=== PATIENT | male | born 1940 | race Caucasian/White ===

== ENCOUNTER → 2019-04-09 | Outpatient (CLI) | payer MEDICARE, OTHER ==
[2019-04-09 16:21] LABS: African American GFR (CKD) 47.5 (60.0-200.0); Albumin 4.6 g/dL (3.80-4.90); Albumin/Globulin Ratio 2.3 (1.60-3.17); Anion Gap 9.3 mmol/L (4.00-12.00); BUN/Creat Ratio 20.63 Ratio (12.00-20.00); Calcium 9.4 mg/dL (8.7-10.3); Carbon Dioxide 22.7 mmol/L (21.6-31.8); LDL Cholesterol,Calculated 78.8 mg/dL (0.0-131.0); Non-African American GFR(CKD) 40.9 (60.0-200.0); Potassium 4.8 mmol/L (3.5-5.5); Total Bilirubin 0.4 mg/dL (0.2-1.2); Total Protein 6.6 g/dL (6.2-8.2); VLDL Calculation 11.2 mg/dL (5.00-40.00)
== END | disposition home or self-care (01) ==
LOC: LABWHC1 11:05
PROVIDERS: ATTEND Internal Medicine Interventional Cardiology
DX: E78.2 Mixed hyperlipidemia (principal)
CPT/HCPCS: 36415; 80053; 80061

== ENCOUNTER → 2019-05-27 | Outpatient (CLI) | payer MEDICARE, OTHER ==
--- NOTE | 2019-05-27 10:37 | XR ---
EXAMINATION TYPE: XR chest 2V DATE OF EXAM: 05/27/2019 COMPARISON: NONE TECHNIQUE: PA and lateral views submitted. HISTORY: Pre-MRI FINDINGS: The lungs are clear and there is no pneumothorax, pleural effusion, or focal pneumonia. Postoperati ve change with biapical pleural thickening. No overt failure. No diagnostic evidence of epicardial le ad. Surgical clips and mediastinal clips are noted. A probable coronary bypass markers noted. Sternot gloria wires noted. IMPRESSION: 1. No epicardial lead identified. There are sternotomy wires and mediastinal clips as discussed above correlate clinically.
== END | disposition home or self-care (01) ==
LOC: RADXRMAIN 09:43
PROVIDERS: ATTEND Physical Medicine & Rehabilitation
DX: Z18.9 Retained foreign body fragments, unspecified material (principal)
CPT/HCPCS: 71046

== ENCOUNTER 2019-06-11 10:46 | Inpatient (IN) | payer MEDICARE, OTHER ==
[2019-06-11 11:38] LABS: Albumin 4.5 g/dL (3.5-5.0); Calcium 9.3 mg/dL (8.4-10.2); Potassium 4.6 mmol/L (3.5-5.1); Total Bilirubin 0.6 mg/dL (0.2-1.3); Total Protein 7.5 g/dL (6.3-8.2)
--- NOTE | 2019-06-11 11:39 | XR ---
EXAMINATION TYPE: XR chest 2V DATE OF EXAM: 06/11/2019 COMPARISON: 05/27/2019 TECHNIQUE: PA and lateral views submitted. HISTORY: Cough FINDINGS: The lungs are clear and there is no pneumothorax, pleural effusion, or focal pneumonia. Postoperati ve changes. No overt failure. Biapical pleural thickening. Atherosclerotic change aorta. IMPRESSION: 1. No acute process.
[2019-06-11] MEDS ORDERED: ASPIRIN 81 MG PO STA (11:49)
[2019-06-11] MEDS ORDERED: NITROGLYCERIN OINT 1 INCH/GM PACKET TOPICAL STA (11:49)
--- NOTE | 2019-06-11 11:53 | ED ---
General Adult HPI - General Chief complaint: Chest Pain Stated complaint: Shoulder and neck pain,chest heaviness Time Seen by Provider: 06/11/19 10:55 Source: patient, RN notes reviewed Mode of arrival: ambulatory Limitations: no limitations - History of Present Illness Initial comments: Patient is a pleasant 79-year-old male presenting to the emergency department with chest and neck and posterior or discomfort. Patient was snowblowing with sudden onset of symptoms. Discomfort feels like tightness in his chest. Discomfort was mild to moderate and is now mild. Discomfort in the back of the neck and arms was moderate to severe and is now moderate. Patient may have had symptoms years ago and saw his doctor and was placed on medication for it. No associated dyspnea, nausea, or diaphoresis. No leg pain or leg swelling. Patient denies back pain. - Related Data Allergies Allergy/AdvReac Type Severity Reaction Status Date / Time morphine Allergy Rash/Hives Verified 06/11/19 13:38 Review of Systems ROS Statement: Those systems with pertinent positive or pertinent negative responses have been documented in the HPI. ROS Other: All systems not noted in ROS Statement are negative. Constitutional: Denies: fever Eyes: Denies: eye pain ENT: Denies: ear pain Respiratory: Denies: cough Cardiovascular: Reports: as per HPI, chest pain Endocrine: Denies: fatigue Gastrointestinal: Denies: abdominal pain Genitourinary: Denies: dysuria Musculoskeletal: Denies: back pain Skin: Denies: rash Neurological: Denies: weakness Past Medical History Past Medical History: Chest Pain / Angina, Diabetes Mellitus, Hyperlipidemia, Hypertension, Renal Disease History of Any Multi-Drug Resistant Organisms: None Reported Past Surgical History: Coronary Bypass/CABG Additional Past Surgical History / Comment(s): quad bypass Past Psychological History: Depression Smoking Status: Former smoker Past Alcohol Use History: None Reported Past Drug Use History: None Reported General Exam Limitations: no limitations General appearance: alert, in no apparent distress Head exam: Present: normocephalic Eye exam: Present: normal appearance, PERRL ENT exam: Present: normal oropharynx Neck exam: Present: normal inspection Respiratory exam: Present: normal lung sounds bilaterally. Absent: chest wall tenderness Cardiovascular Exam: Present: regular rate, normal rhythm Expanded Peripheral pulses: 2+: Radial (R), Radial (L), Femoral (R), Femoral (L), Posterior Tibialis (R), Posterior Tibialis (L), Dorsalis Pedis (R), Dorsalis Pedis (L) GI/Abdominal exam: Present: soft. Absent: distended, tenderness Extremities exam: Present: normal inspection. Absent: pedal edema, calf tenderness Neurological exam: Present: alert Psychiatric exam: Present: normal affect, normal mood Skin exam: Present: normal color Course Vital Signs 06/11/19 06/11/19 06/11/19 10:49 11:08 11:15 Temperature 97.9 F Pulse Rate 97 82 Pulse Rate [ 78 [employer] ] Respiratory 18 18 Rate Blood Pressure 179/82 167/80 O2 Sat by Pulse 97 96 Oximetry 06/11/19 06/11/19 12:14 13:56 Temperature Pulse Rate 75 56 L Pulse Rate [ [employer] ] Respiratory 20 18 Rate Blood Pressure 109/59 115/55 O2 Sat by Pulse 97 97 Oximetry EKG Findings - EKG Comments: EKG Findings:: Normal sinus rhythm 83. GA 172. QRS 92. QT 368. QTC 432. Normal axis. Inferior Q waves. Nonspecific ST-T. Medical Decision Making - Medical Decision Making Patient reevaluated and resting comfortably in bed. Patient updated on results and plan. Case was discussed in detail with Dr. Gomez, will admit for Dr. Lua. - Lab Data Result diagrams: 06/11/19 11:08 06/11/19 11:08 Lab Results 06/11/19 06/11/19 06/11/19 Range/Units 11:08 11:08 11:08 WBC 9.8 (3.8-10.6) k/uL RBC 4.15 L (4.30-5.90) m/uL Hgb 12.0 L (13.0-17.5) gm/dL Hct 37.5 L (39.0-53.0) % MCV 90.3 (80.0-100.0) fL MCH 29.0 (25.0-35.0) pg MCHC 32.1 (31.0-37.0) g/dL RDW 16.2 H (11.5-15.5) % Plt Count 185 (150-450) k/uL Neutrophils % 89 % Lymphocytes % 6 % Monocytes % 4 % Eosinophils % 0 % Basophils % 0 % Neutrophils # 8.7 H (1.3-7.7) k/uL Lymphocytes # 0.6 L (1.0-4.8) k/uL Monocytes # 0.4 (0-1.0) k/uL Eosinophils # 0.0 (0-0.7) k/uL Basophils # 0.0 (0-0.2) k/uL Anisocytosis Slight PT 9.4 (9.0-12.0) sec INR 0.9 (<1.2) APTT 22.5 (22.0-30.0) sec Sodium 140 (137-145) mmol/L Potassium 4.6 (3.5-5.1) mmol/L Chloride 105 (98-107) mmol/L Carbon Dioxide 21 L (22-30) mmol/L Anion Gap 14 mmol/L BUN 27 H (9-20) mg/dL Creatinine 1.21 (0.66-1.25) mg/dL Est GFR (CKD-EPI)AfAm 66 (>60 ml/min/1.73 sqM) Est GFR (CKD-EPI)NonAf 57 (>60 ml/min/1.73 sqM) Glucose 203 H (74-99) mg/dL Calcium 9.3 (8.4-10.2) mg/dL Magnesium (1.6-2.3) mg/dL Total Bilirubin 0.6 (0.2-1.3) mg/dL AST 27 (17-59) U/L ALT 20 (4-49) U/L Alkaline Phosphatase 67 (38-126) U/L Troponin I (0.000-0.034) ng/mL Total Protein 7.5 (6.3-8.2) g/dL Albumin 4.5 (3.5-5.0) g/dL 06/11/19 06/11/19 Range/Units 11:08 11:08 WBC (3.8-10.6) k/uL RBC (4.30-5.90) m/uL Hgb (13.0-17.5) gm/dL Hct (39.0-53.0) % MCV (80.0-100.0) fL MCH (25.0-35.0) pg MCHC (31.0-37.0) g/dL RDW (11.5-15.5) % Plt Count (150-450) k/uL Neutrophils % % Lymphocytes % % Monocytes % % Eosinophils % % Basophils % % Neutrophils # (1.3-7.7) k/uL Lymphocytes # (1.0-4.8) k/uL Monocytes # (0-1.0) k/uL Eosinophils # (0-0.7) k/uL Basophils # (0-0.2) k/uL Anisocytosis PT (9.0-12.0) sec INR (<1.2) APTT (22.0-30.0) sec Sodium (137-145) mmol/L Potassium (3.5-5.1) mmol/L Chloride (98-107) mmol/L Carbon Dioxide (22-30) mmol/L Anion Gap mmol/L BUN (9-20) mg/dL Creatinine (0.66-1.25) mg/dL Est GFR (CKD-EPI)AfAm (>60 ml/min/1.73 sqM) Est GFR (CKD-EPI)NonAf (>60 ml/min/1.73 sqM) Glucose (74-99) mg/dL Calcium (8.4-10.2) mg/dL Magnesium 1.8 (1.6-2.3) mg/dL Total Bilirubin (0.2-1.3) mg/dL AST (17-59) U/L ALT (4-49) U/L Alkaline Phosphatase (38-126) U/L Troponin I 0.022 (0.000-0.034) ng/mL Total Protein (6.3-8.2) g/dL Albumin (3.5-5.0) g/dL - Radiology Data Radiology results: report reviewed (Computed tomography scan of the chest negative for pulmonary embolism. Aorta unremarkable.), image reviewed (Chest x- ray shows no acute process) Disposition Clinical Impression: Chest pain Disposition: ADMITTED IP TO THIS HOSP Is patient prescribed a controlled substance at d/c from ED?: No Referrals: Junaid Castañeda MD [Primary Care Provider] - 1-2 days Decision Time: 14:01
[2019-06-11 12:13] LABS: Anisocytosis Slight; Basophils % (A) 0 %; Eosinophils % (A) 0 %; HCT 37.5 % (39.0-53.0); Lymphocytes # (A) 0.6 k/uL (1.0-4.8); Lymphocytes % (A) 6 %; MCHC 32.1 g/dL (31.0-37.0); MCV 90.3 fL (80.0-100.0); Mean Platelet Volume 8.6; Monocytes # (A) 0.4 k/uL (0-1.0); Monocytes % (A) 4 %; Neutrophils # (A) 8.7 k/uL (1.3-7.7); Neutrophils % (A) 89 %; Platelet Count 185 k/uL (150-450); RBC 4.15 m/uL (4.30-5.90); RDW 16.2 % (11.5-15.5); WBC 9.8 k/uL (3.8-10.6)
[2019-06-11 12:23] LABS: INR 0.9 (<1.2); Partial Thromboplastin Time 22.5 sec (22.0-30.0); Prothrombin Time 9.4 sec (9.0-12.0)
--- NOTE | 2019-06-11 13:38 | CT ---
CT CHEST FOR PULMONARY EMBOLISM. EXAMINATION TYPE: CT angio chest DATE OF EXAM: 06/11/2019 INDICATION: chest/neck pain CT DLP: 1313.4 mGycm, Automated exposure control for dose reduction was used. CONTRAST: Patient injected with 80 mL of Isovue 370. COMPARISON: None TECHNIQUE: CT of the chest is performed on a spiral scan at 2 mm thick sections. Study is performed with intravenous contrast timed for evaluation for pulmonary embolism. This will limit additional po rtions of the evaluation. 3-D MIP images reconstructed by the technologist are reviewed on the compu ter in the coronal and sagittal planes. FINDINGS: No persistent filling defects are evident to suggest an acute pulmonary embolism. No mediastinal or hilar adenopathy enlarged by CT criteria is evident. The ascending aorta diameter at the level of the main pulmonary artery is 4.0 cm. The main pulmonary artery diameter at the bifur cation is 3.0 cm. Moderate coronary artery calcification is present. Vascular calcification is within the aorta. Lung windows are clear. Limited CT section through the upper abdomen are unremarkable. IMPRESSIONS: 1. No acute pulmonary embolism.
[2019-06-11] MEDS ORDERED: NITROGLYCERIN SL TABS 0.4 MG TAB SUBLINGUAL PRN (14:05)
[2019-06-11 16:49] LABS: Glucose,Whole Blood 153 mg/dL (75-99)
[2019-06-11] MEDS: NITROGLYCERIN OINT 1 INCH/GM PACKET TOPICAL SCH (18:09)
[2019-06-11] MEDS ORDERED: HEPARIN SODIUM,PORCINE 5,000 UNIT/ML 1 ML VIAL IV STA (18:43)
[2019-06-11] MEDS ORDERED: HEPARIN SOD,PORK IN 0.45% NACL 25,000 UNIT in 0.45% NACL 1 250ML.BAG IV SCH (18:45)
[2019-06-11 21:19] LABS: Glucose,Whole Blood 131 mg/dL (75-99)
[2019-06-11] MEDS: INSULIN ASPART (NovoLOG) 100 UNIT/ML VIAL SQ SCH (21:56)
[2019-06-11] MEDS: GABAPENTIN 100 MG CAP PO SCH (21:57)
--- NOTE | 2019-06-11 22:17 | P.HPIM ---
History of Present Illness H&P Date: 06/11/19 Chief Complaint: Chest pain and neck pain Patient is a 79-year-old male with a known history of hypertension, diabetes type 2 insulin-dependent, coronary artery disease history of CABG and history of chronic chest pain relieved symptomatic improvement with Imdur, previous history of smoking and depression came to ER with the complaints of chest tightness and posterior neck pain and discomfort while he was snowblowing. Patient felt neck pain and shoulder pain and heaviness in the chest. Denied any nausea or vomiting. Patient did have some shortness of breath associated with that. No headache or dizziness or lightheadedness. No recent illnesses. No leg swelling. Patient says that he was diagnosed with flu about 2 months and since then has been having intermittent shortness of breath. Patient denied any cough is from production. No fever no chills. Patient is from [place] and is the first time he is staying in [place] during winter season. EKG showed normal sinus rhythm Chest x-ray showed no acute cardio pulmonary process CT angiogram of the chest showed no evidence of pulmonary embolism. Troponin 1 negative Review of Systems Constitutional: Patient denies any fever or chills . No generalized weakness or weight loss. Abdomen: Patient denied nausea vomiting and diarrhea and abdominal pain. Cardiovascular: Patient denies any chest pain or short of breath no palpitations. Chest tightness. Respiratory: patient denied any cough is from production. No shortness of breath Neurologic: Patient denied any numbness or tingling headache. Musculoskeletal: Patient denies any complaints of joint swelling or deformity. Skin: Negative Psychiatric: Negative Endocrine: No heat or cold intolerance. No recent weight gain. Genitourinary: No dysuria or hematuria. All other 14 point ROS negative except the above Past Medical History Past Medical History: Chest Pain / Angina, Diabetes Mellitus, Hyperlipidemia, Hypertension, Renal Disease History of Any Multi-Drug Resistant Organisms: None Reported Past Surgical History: Coronary Bypass/CABG Additional Past Surgical History / Comment(s): quad bypass Past Psychological History: Depression Smoking Status: Former smoker Past Alcohol Use History: None Reported Past Drug Use History: None Reported Medications and Allergies Home Medications Medication Instructions Recorded Confirmed Type Albuterol Sulfate [Proair Hfa] 2 puff INHALATION RT-Q6H PRN 06/11/19 06/11/19 History Aspirin EC [Ecotrin Low Dose] 81 mg PO DAILY 06/11/19 06/11/19 History Carboxymethylcellulose Sodium 1 drop BOTH EYES DAILY PRN 06/11/19 06/11/19 History [Refresh Tears] Cetirizine HCl [Zyrtec] 10 mg PO DAILY 06/11/19 06/11/19 History Cyanocobalamin (Vitamin B-12) 1,000 mcg PO DAILY 06/11/19 06/11/19 History [Vitamin B-12] Gabapentin [Neurontin] 100 mg PO BID 06/11/19 06/11/19 History Hydrochlorothiazide [Hydrodiuril] 25 mg PO DAILY 06/11/19 06/11/19 History Insulin Glargine,Hum.rec.anlog 60 unit SQ DAILY 06/11/19 06/11/19 History [Lantus Solostar] Isosorbide Mononitrate ER [Imdur] 60 mg PO DAILY 06/11/19 06/11/19 History Losartan Potassium 100 mg PO DAILY 06/11/19 06/11/19 History Metoprolol Succinate (ER) [Toprol 25 mg PO DAILY 06/11/19 06/11/19 History Xl] Multivitamins, Thera [Multivitamin 1 tab PO DAILY 06/11/19 06/11/19 History (formulary)] Rosuvastatin Calcium [Crestor] 20 mg PO DAILY 06/11/19 06/11/19 History glipiZIDE [Glucotrol] 2.5 mg PO AC-BID 06/11/19 06/11/19 History Allergies Allergy/AdvReac Type Severity Reaction Status Date / Time morphine Allergy Rash/Hives Verified 06/11/19 13:38 Physical Exam Vitals: Vital Signs Temp Pulse Pulse Resp BP BP Pulse Ox 06/11/19 16:00 97.6 F 58 L 18 148/70 99 06/11/19 15:34 98.3 F 57 L 18 134/69 97 06/11/19 13:56 56 L 18 115/55 97 06/11/19 12:14 75 20 109/59 97 06/11/19 11:15 82 18 167/80 96 06/11/19 11:08 78 06/11/19 10:49 97.9 F 97 18 179/82 97 Intake and Output 06/11/19 06/11/19 06/11/19 06:59 14:59 22:59 Other: Weight 98.883 kg 98.883 kg PHYSICAL EXAMINATION: Patient is lying in the bed comfortably, no acute distress, awake alert and oriented.. HEENT: Normocephalic. Neck is supple. Pupils reactive. Nostrils clear. Oral cavity is moist. Ears reveal no drainage. Neck reveals no JVD, carotid bruits, or thyromegaly. CHEST EXAMINATION: Trachea is central. Symmetrical expansion. Minimal expiratory wheeze. Lung randolph clear to auscultation and percussion. CARDIAC: Normal S1, S2 with no gallops. No murmurs ABDOMEN: Soft. Bowel sounds normal. No organomegaly. No abdominal bruits. Extremities: reveal no edema. No clubbing or cyanosis Neurologically awake, alert, oriented x3 with well-coordinated movements. No focal deficits noted Skin: No rash or skin lesions. Psychiatric: Coperative. Nonsuicidal Musculoskeletal: No joint swelling or deformity. Normal range of motion. Results CBC & Chem 7: 06/11/19 11:08 06/11/19 11:08 Labs: Abnormal Lab Results - Last 24 Hours (Table) 06/11/19 06/11/19 Range/Units 11:08 11:08 RBC 4.15 L (4.30-5.90) m/uL Hgb 12.0 L (13.0-17.5) gm/dL Hct 37.5 L (39.0-53.0) % RDW 16.2 H (11.5-15.5) % Neutrophils # 8.7 H (1.3-7.7) k/uL Lymphocytes # 0.6 L (1.0-4.8) k/uL Carbon Dioxide 21 L (22-30) mmol/L BUN 27 H (9-20) mg/dL Glucose 203 H (74-99) mg/dL Thrombosis Risk Factor Assmnt - DVT/VTE Prophylaxis DVT/VTE Prophylaxis: Pharmacologic Prophylaxis ordered - Choose All That Apply Any of the Below Risk Factors Present?: Yes Each Factor Represents 1 point: Obesity (BMI >25) Other Risk Factors: Yes Each Risk Factor Represents 3 Points: Age 75 years or older Other congenital or acquired thrombophilia - If yes, enter type in comment: No Thrombosis Risk Factor Assessment Total Risk Factor Score: 4 Thrombosis Risk Factor Assessment Level: Moderate Risk Assessment and Plan Assessment: Chest pain with known history of coronary artery disease. Atypical in nature. Rule out ACS. Recent history of flu 2 months ago Coronary artery disease with history of CABG Chronic angina symptoms. Symptomatic improvement with imdur as per patient. Hypertension Hyperglycemia with uncontrolled diabetes type 2 Depression Previous history of smoking DVT prophylaxis obesity with BMI 33.1 Plan: Patient will be continued on telemetry monitoring. Patient will be started on breathing treatments. Troponin 1 negative. Continue the home medications and insulin sliding scale. Cardiology was consulted. Further recommendations based on the clinical course. Time with Patient: Greater than 30
[2019-06-12] MEDS: NITROGLYCERIN OINT 1 INCH/GM PACKET TOPICAL SCH ×3 (02:04→13:22)
[2019-06-12] MEDS ORDERED: HEPARIN SODIUM,PORCINE 5,000 UNIT/ML 1 ML VIAL IV STA (03:03)
[2019-06-12 05:18] LABS: Cholesterol 150 mg/dL (<200); HDL Cholesterol 56 mg/dL (40-60); LDL Cholesterol,Calculated 79 mg/dL (0-99); Triglycerides 73 mg/dL (<150)
[2019-06-12 06:50] LABS: Glucose,Whole Blood 121 mg/dL (75-99)
[2019-06-12] MEDS: INSULIN ASPART (NovoLOG) 100 UNIT/ML VIAL SQ SCH ×4 (08:51→20:57)
[2019-06-12] MEDS: GABAPENTIN 100 MG CAP PO SCH ×2 (08:58→20:59)
[2019-06-12] MEDS: ISOSORBIDE MONONITRATE ER 60 MG TAB.ER.24H PO SCH (08:58)
[2019-06-12] MEDS: ATORVASTATIN 40 MG TAB PO SCH (08:58)
[2019-06-12] MEDS: LOSARTAN 50 MG TAB PO SCH (08:58)
[2019-06-12] MEDS ORDERED: ASPIRIN 325 MG TAB PO SCH (09:00)
[2019-06-12] MEDS ORDERED: ALPRAZolam 0.25 MG TAB PO PRN (10:35)
[2019-06-12] MEDS ORDERED: ALPRAZolam 0.5 MG TAB PO PRN (10:35)
[2019-06-12] MEDS ORDERED: SODIUM CHLORIDE 0.9% 1,000 ML in EMPTY BAG 1 BAG IV ONE (10:35)
--- NOTE | 2019-06-12 10:40 | P.CRDCN ---
History of Present Illness Consult date: 06/12/19 Consult reason: chest pain History of present illness: The patient is a 79-year-old male who follows with Dr. Barrera in the office who recently presented to the hospital with new onset of shoulder and chest discomfort while using his snowblower. He states some snow had fallen off of his roof, therefore he was attempting to move it from outside his garage door. He states he does have chronic back discomfort so when he started to push through the snow and developed neck pain, he continued to push. At that time he then developed a sharp squeezing sensation throughout his chest. EKG shows [address] depression in the lateral leads. Troponins 0.02, 1.6, and 1.3. Previous cath report performed at [facility] in November 2018 showed patent RUIZ to LAD patent SVG to diagonal P SVG to PDA, and DIRECTOR OF INSTITUTIONAL GIVING of LCx with collateral from PDA. He is currently resting comfortably in bed at the time of my examination. He continues to have posterior neck discomfort, however denies any more chest pain. He also denies any shortness of breath, palpitations, dizziness, or lightheadedness. PAST MEDICAL HISTORY: Coronary artery disease status post CABG 3, hypertension, dyslipidemia, diabetes mellitus and neuropathy REVIEW OF SYSTEMS: No fever or chills. No cough or expectoration. No diaphoresis. Patient denies headache, dizziness, blurred vision, double vision. Patient denies any stomach discomfort. No nausea, vomiting. No hematochezia. No hematemesis. Denies any black stools or blood in his stools. Denies dysuria or hematuria. No muscle weakness or numbness. Positive for neck discomfort PHYSICAL EXAMINATION: This is a 79-year-old obese male in no apparent distress at the time of my examination. HEENT: Head is atraumatic, normocephalic. Pupils are equal, round. Sclerae anicteric. Conjunctivae are clear. Mucous membranes of the mouth are moist. Neck is supple. There is no jugular venous distention. No carotid bruit is heard. CHEST EXAMINATION: Lungs are clear to auscultation. No chest wall tenderness is noted on palpation or with deep breathing. HEART EXAMINATION: Heart regular rate and rhythm. S1, S2 heard. No murmurs, gallops or rub. ABDOMEN: Soft, nontender. Bowel sounds are heard. No organomegaly noted. EXTREMITIES: 2+ peripheral pulses with no evidence of peripheral edema and no calf tenderness noted. NEUROLOGIC EXAMINATION: Patient is awake, alert and oriented x3. LABORATORY DATA: WBC 9.8, hemoglobin 12.0, hematocrit 37.5, platelet 185, sodium 140, potassium 4.6, BUN 27, creatinine 1.21, magnesium 1.8, AST 27, ALT 20, triglycerides 73, LDL 79, HDL 56 FINAL ASSESSMENT AND PLAN: #1 NSTEMI, history of coronary artery disease with CABG 3 #2 diabetes mellitus, uncontrolled #3 dyslipidemia, current LDL 79 #4 hypertension PLAN: We will proceed with left heart cath. Further recommendations to follow. Past Medical History Past Medical History: Chest Pain / Angina, Diabetes Mellitus, Hyperlipidemia, Hypertension, Renal Disease History of Any Multi-Drug Resistant Organisms: None Reported Past Surgical History: Coronary Bypass/CABG Additional Past Surgical History / Comment(s): quad bypass Past Psychological History: Depression Smoking Status: Former smoker Past Alcohol Use History: None Reported Past Drug Use History: None Reported Medications and Allergies Home Medications Medication Instructions Recorded Confirmed Type Albuterol Sulfate [Proair Hfa] 2 puff INHALATION RT-Q6H PRN 06/11/19 06/11/19 History Aspirin EC [Ecotrin Low Dose] 81 mg PO DAILY 06/11/19 06/11/19 History Carboxymethylcellulose Sodium 1 drop BOTH EYES DAILY PRN 06/11/19 06/11/19 History [Refresh Tears] Cetirizine HCl [Zyrtec] 10 mg PO DAILY 06/11/19 06/11/19 History Cyanocobalamin (Vitamin B-12) 1,000 mcg PO DAILY 06/11/19 06/11/19 History [Vitamin B-12] Gabapentin [Neurontin] 100 mg PO BID 06/11/19 06/11/19 History Hydrochlorothiazide [Hydrodiuril] 25 mg PO DAILY 06/11/19 06/11/19 History Insulin Glargine,Hum.rec.anlog 60 unit SQ DAILY 06/11/19 06/11/19 History [Lantus Solostar] Isosorbide Mononitrate ER [Imdur] 60 mg PO DAILY 06/11/19 06/11/19 History Losartan Potassium 100 mg PO DAILY 06/11/19 06/11/19 History Metoprolol Succinate (ER) [Toprol 25 mg PO DAILY 06/11/19 06/11/19 History Xl] Multivitamins, Thera [Multivitamin 1 tab PO DAILY 06/11/19 06/11/19 History (formulary)] Rosuvastatin Calcium [Crestor] 20 mg PO DAILY 06/11/19 06/11/19 History glipiZIDE [Glucotrol] 2.5 mg PO AC-BID 06/11/19 06/11/19 History Allergies Allergy/AdvReac Type Severity Reaction Status Date / Time morphine Allergy Rash/Hives Verified 06/11/19 13:38 Physical Exam Vitals: Vital Signs Temp Pulse Pulse Pulse Resp BP BP 06/12/19 07:10 97.5 F L 54 L 18 151/74 06/12/19 04:00 97.9 F 64 16 06/12/19 03:56 57 L 18 06/11/19 23:45 98.5 F 57 L 18 06/11/19 23:15 57 L 18 06/11/19 19:10 98.5 F 63 18 06/11/19 16:00 97.6 F 58 L 18 06/11/19 15:34 98.3 F 57 L 18 134/69 06/11/19 13:56 56 L 18 115/55 06/11/19 12:14 75 20 109/59 06/11/19 11:15 82 18 167/80 06/11/19 11:08 78 06/11/19 10:49 97.9 F 97 18 179/82 BP Pulse Ox 06/12/19 07:10 96 06/12/19 04:00 144/72 97 06/12/19 03:56 06/11/19 23:45 141/64 98 06/11/19 23:15 06/11/19 19:10 135/62 96 06/11/19 16:00 148/70 99 06/11/19 15:34 97 06/11/19 13:56 97 06/11/19 12:14 97 06/11/19 11:15 96 06/11/19 11:08 06/11/19 10:49 97 Intake and Output 06/11/19 06/12/19 06/12/19 22:59 06:59 14:59 Intake Total 240 81.476 85.422 Balance 240 81.476 85.422 Intake: Intake, IV Titration 81.476 85.422 Amount Heparin Sod,Pork in 0.45% 81.476 85.422 NaCl 25,000 unit In 0.45 % NaCl 1 250ml.bag @ 10. 11 UNITS/KG/HR 9.997 mls/ hr IV .Q24H [facility] Rx#: [id number] Oral 240 Other: Voiding Method Toilet # Voids 1 1 Weight 98.883 kg Results 06/11/19 11:08 06/11/19 11:08 Cardiac Enzymes 06/11/19 06/11/19 06/11/19 Range/Units 11:08 11:08 17:11 AST 27 (17-59) U/L Troponin I 0.022 1.600 H* (0.000-0.034) ng/mL 06/11/19 Range/Units 22:43 AST (17-59) U/L Troponin I 1.370 H* (0.000-0.034) ng/mL Coagulation 06/11/19 06/12/19 06/12/19 Range/Units 11:08 00:49 09:40 PT 9.4 (9.0-12.0) sec APTT 22.5 38.4 H 62.6 H (22.0-30.0) sec Lipids 06/11/19 Range/Units 11:08 Triglycerides 73 (<150) mg/dL Cholesterol 150 (<200) mg/dL HDL Cholesterol 56 (40-60) mg/dL CBC 06/11/19 Range/Units 11:08 WBC 9.8 (3.8-10.6) k/uL RBC 4.15 L (4.30-5.90) m/uL Hgb 12.0 L (13.0-17.5) gm/dL Hct 37.5 L (39.0-53.0) % Plt Count 185 (150-450) k/uL Comprehensive Metabolic Panel 06/11/19 Range/Units 11:08 Sodium 140 (137-145) mmol/L Potassium 4.6 (3.5-5.1) mmol/L Chloride 105 (98-107) mmol/L Carbon Dioxide 21 L (22-30) mmol/L BUN 27 H (9-20) mg/dL Creatinine 1.21 (0.66-1.25) mg/dL Glucose 203 H (74-99) mg/dL Calcium 9.3 (8.4-10.2) mg/dL AST 27 (17-59) U/L ALT 20 (4-49) U/L Alkaline Phosphatase 67 (38-126) U/L Total Protein 7.5 (6.3-8.2) g/dL Albumin 4.5 (3.5-5.0) g/dL Current Medications Generic Name Dose Route Start Last Admin Trade Name Yenny PRN Reason Stop Dose Admin Aspirin 325 mg 06/12/19 09:00 06/12/19 08:58 Aspirin PO 325 mg DAILY JAMESON Administration Atorvastatin Calcium 40 mg 06/12/19 09:00 06/12/19 08:58 Lipitor PO 40 mg DAILY JAMESON Administration Gabapentin 100 mg 06/11/19 21:30 06/12/19 08:58 Neurontin PO 100 mg BID JAMESON Administration Heparin Sodium/Sodium Chloride 250 mls @ 9.997 mls/hr 06/11/19 18:45 06/12/19 10:30 25,000 unit/ Sodium Chloride IV 12.11 units/kg/hr .Q24H JAMESON 11.975 mls/hr Titration Protocol 10.11 UNITS/KG/HR Insulin Aspart 0 unit 06/11/19 21:30 06/12/19 08:51 Novolog SQ Not Given ACHS [facility] Protocol Insulin Detemir 60 unit 06/12/19 09:00 Levemir SQ DAILY [facility] Isosorbide Mononitrate 60 mg 06/12/19 09:00 06/12/19 08:58 Imdur PO 60 mg DAILY JAMESON Administration Losartan Potassium 100 mg 06/12/19 09:00 06/12/19 08:58 Cozaar PO 100 mg DAILY JAMESON Administration Nitroglycerin 0.4 mg 06/11/19 14:05 Nitrostat SUBLINGUAL Q5M PRN Chest Pain Nitroglycerin 1 inch 06/11/19 18:00 06/12/19 05:40 Nitro-Bid Oint TOPICAL Not Given Q6HR JAMESON Sodium Chloride 10 ml 06/11/19 21:00 06/12/19 08:52 Saline Flush IV Not Given BID JAMESON Intake and Output 06/11/19 06/12/19 06/12/19 22:59 06:59 14:59 Intake Total 240 81.476 85.422 Balance 240 81.476 85.422 Intake: Intake, IV Titration 81.476 85.422 Amount Heparin Sod,Pork in 0.45% 81.476 85.422 NaCl 25,000 unit In 0.45 % NaCl 1 250ml.bag @ 10. 11 UNITS/KG/HR 9.997 mls/ hr IV .Q24H [facility] Rx#: [id number] Oral 240 Other: Voiding Method Toilet # Voids 1 1 Weight 98.883 kg 06/11/19 11:08 06/11/19 11:08
[2019-06-12] MEDS ORDERED: ATORVASTATIN 40 MG TAB PO STA (10:53)
[2019-06-12] MEDS ORDERED: IV FLUID CONTINUATION 1,000 ML IV ONE (11:18)
[2019-06-12] MEDS ORDERED: LIDOCAINE 1% INJ 10MG/ML (20 ML MDV) ONE (11:23)
[2019-06-12] MEDS ORDERED: fentaNYL (PF) 50 MCG/ML 2 ML AMP ONE (11:24)
[2019-06-12] MEDS ORDERED: fentaNYL (PF) 50 MCG/ML 2 ML AMP IV ONE (11:34)
[2019-06-12] MEDS ORDERED: LIDOCAINE 1% INJ 10MG/ML (20 ML MDV) SQ ONE (11:38)
[2019-06-12] MEDS ORDERED: IOPAMIDOL-370 125ML BTL INJ ONE (11:50)
[2019-06-12] MEDS ORDERED: IOPAMIDOL-370 100ML BTL INJ ONE (11:54)
[2019-06-12] MEDS ORDERED: RX INFO: IV CONTRAST WAS GIVEN 1 EACH MISC MISCELLANE PRN (12:13)
[2019-06-12] MEDS ORDERED: SODIUM CHLORIDE 0.9% 1,000 ML IV SCH (12:15)
[2019-06-12 12:35] LABS: Glucose,Whole Blood 102 mg/dL (75-99)
[2019-06-12] MEDS: INSULIN DETEMIR (LEVEMIR) 100 UNIT/ML SYR SQ SCH (13:04)
[2019-06-12] MEDS: CLOPIDOGREL 75 MG TAB PO SCH (13:04)
[2019-06-12] MEDS: RANOLAZINE 500 MG TAB.ER.12H PO SCH ×2 (13:04→20:59)
--- NOTE | 2019-06-12 13:06 | CC ---
CARDIAC CATHETERIZATION REPORT procedures risks and complication were discussed with the patient who is in full understanding and agreement. 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 Using Xylocaine anesthesia in the Seldinger technique, a 6-Colombian sheath was introduced in the right radial right femoral artery. Selective right and left coronary angiography performed was performed using 6-Colombian 4 bend right and left Rekha catheter. Multiple views did not include him x-rays obtained following that the 6-Colombian right Rekha was used to cannulate the saphenous vein graft to the right coronary artery. The radial graft to the diagonal branch and the RUIZ to the LAD images of the grafts were obtained. Following that, catheter and sheath were removed. Hemostasis was obtained with deployment of an Angio- Seal. There was no immediate complication. Patient is returned to his room in stable condition. FINDINGS: 1. FLUOROSCOPY: There was calcification involving the coronary arteries. 2. LEFT MAIN: This is a large-sized vessel, bifurcating into left circumflex, left anterior descending artery left main coronary artery has a 60%-70% plaque stenosis at the distal segment. 3. LEFT ANTERIOR DESCENDING ARTERY: This is a large-sized vessel, has long tubular lesion in the proximal mid segment up to 70%-80%, gives rise to a high first diagonal branch. The LAD in the mid segment has competitive flow from the RUIZ. 4. LEFT CIRCUMFLEX: This vessel is subtotally occluded in the proximal segment with no significant antegrade flow. 5. RIGHT CORONARY ARTERY: This is a large vessel, calcified throughout its course has diffuse intimal disease in the proximal in the mid and distal segment up to 60% to 70% at the distal bifurcation. There is a 99% stenosis with minimal antegrade flow beyond that. 6. SAPHENOUS VEIN GRAFT TO THE RIGHT CORONARY ARTERY: The proximal distal anastomotic sites are patent. The flow into the PLV and PDA is brisk. It appears that the distal PDA is occluded. There is retrograde filling of the circumflex to obtuse marginal branch. 7. RADIAL BYPASS TO THE DIAGONAL BRANCH: The proximal distal anastomotic sites are patent. The flow into the diagonal branch is brisk. There is no evidence of high- grade stenosis. 8. RUIZ: The distal anastomotic site is patent and the flow into the LAD is brisk. 9. LEFT VENTRICULOGRAM: Left ventriculogram is not performed. CONCLUSION: 1. Severe triple-vessel coronary artery disease with chronic occluded left circumflex, distal right coronary artery and subtotally occluded LAD. 2. Patent RUIZ to the LAD. 3. Patent radial bypass to the diagonal branch. 4. Patent saphenous vein graft to the PDA with 20%-30% plaque throughout the graft. 5. Collaterals to the left circumflex obtuse marginal branch from the right coronary artery. RECOMMENDATION: In view of finding anatomy, I recommend continue medical therapy with aggressive risk modifications being initiated. Those findings and recommendation were discussed with the patient his family and they are in full understanding and agreement. Duration of procedure is 24 minutes. MMODL / IJN: [id number] /
--- NOTE | 2019-06-12 13:12 | LTR ---
DATE OF SERVICE: 06/12/2019 RE: Abbe Burnham Dear Dr. Castañeda; I had the pleasure to perform cardiac catheterization oh Mr. Burnham at [facility] on June 08 and a full copy of the procedure noted will be forwarded to you. In brief, he was found to have severe triple-vessel coronary artery disease with patent saphenous vein graft to the right coronary artery, patent RUIZ to LAD and patent radial graft to the diagonal branch with chronically occluded left circumflex. Those finding are very similar to the findings that were noted on the report obtained from [facility] from November 2018 and based on this findings, I recommend to continue medical therapy with aggressive risk modifications being initiated. Thank you again for allowing me to participate in this patient's care. Please feel free to call for any questions. Sincerely yours, MD TRINIDAD Lira / JOAQUÍN: [id number] /
[2019-06-12 16:35] LABS: Glucose,Whole Blood 140 mg/dL (75-99)
[2019-06-12 20:08] LABS: Glucose,Whole Blood 151 mg/dL (75-99)
--- NOTE | 2019-06-12 23:44 | P.PN ---
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 Patient felt neck pain and shoulder pain and heaviness in the chest. Denied any nausea or vomiting. Patient did have some shortness of breath associated with that. No headache or dizziness or lightheadedness. No recent illnesses. No leg swelling. Patient says that he was diagnosed with flu about 2 months and since then has been having intermittent shortness of breath. Patient denied any cough is from production. No fever no chills. Patient is from [place] and is the first time he is staying in [place] during winter season. EKG showed normal sinus rhythm Chest x-ray showed no acute cardio pulmonary process CT angiogram of the chest showed no evidence of pulmonary embolism. Troponin 1 negative. Second troponin went up to 1.60 and 1.37 06/11/2019 Patient denied any complains of chest pain now. Patient underwent cardiac catheterization and no intervention was done. Patient is being continued on telemetry monitoring. No complaints of chest pain. No headache or dizziness or lightheadedness. Cardiology is following. Current medications reviewed. Objective - Vital Signs Vital signs: Vital Signs Temp 98.2 F 06/12/19 19:48 Pulse 64 06/12/19 19:48 Resp 17 06/12/19 19:48 BP 128/70 06/12/19 19:48 Pulse Ox 97 06/12/19 19:48 Intake & Output 06/12/19 06/12/19 06/13/19 06:59 18:59 06:59 Intake Total 321.476 700.422 Balance 321.476 700.422 Intake: IV 75 Intake, IV Titration 81.476 85.422 Amount Heparin Sod,Pork in 0.45% 81.476 85.422 NaCl 25,000 unit In 0.45 % NaCl 1 250ml.bag @ 10. 11 UNITS/KG/HR 9.997 mls/ hr IV .Q24H JAMESON Rx#: [id number] Oral 240 440 Other 100 Other: Voiding Method Toilet Toilet # Voids 1 1 - Exam PHYSICAL EXAMINATION: Patient is lying in the bed comfortably, no acute distress, awake alert and oriented.. HEENT: Normocephalic. Neck is supple. Pupils reactive. Nostrils clear. Oral cavity is moist. Ears reveal no drainage. Neck reveals no JVD, carotid bruits, or thyromegaly. CHEST EXAMINATION: Trachea is central. Symmetrical expansion. Lung randolph clear to auscultation and percussion. CARDIAC: Normal S1, S2 with no gallops. No murmurs ABDOMEN: Soft. Bowel sounds normal. No organomegaly. No abdominal bruits. Extremities: reveal no edema. No clubbing or cyanosis Neurologically awake, alert, oriented x3 with well-coordinated movements. No focal deficits noted Skin: No rash or skin lesions. Psychiatric: Coperative. Nonsuicidal Musculoskeletal: No joint swelling or deformity. Normal range of motion. - Labs CBC & Chem 7: 06/11/19 11:08 06/11/19 11:08 Labs: Abnormal Lab Results - Last 24 Hours (Table) 06/11/19 06/12/19 06/12/19 Range/Units 22:43 00:49 06:43 APTT 38.4 H (22.0-30.0) sec POC Glucose (mg/dL) 121 H (75-99) mg/dL Troponin I 1.370 H* (0.000-0.034) ng/mL 06/12/19 06/12/19 06/12/19 Range/Units 09:40 12:26 16:32 APTT 62.6 H (22.0-30.0) sec POC Glucose (mg/dL) 102 H 140 H (75-99) mg/dL Troponin I (0.000-0.034) ng/mL 06/12/19 Range/Units 20:07 APTT (22.0-30.0) sec POC Glucose (mg/dL) 151 H (75-99) mg/dL Troponin I (0.000-0.034) ng/mL Assessment and Plan Assessment: Chest pain Acute non-ST elevated MN with elevated troponin levels. Status post cardiac catheterization. No PCI. Recent history of flu 2 months ago Coronary artery disease with history of CABG Chronic angina symptoms. Symptomatic improvement with imdur as per patient. Hypertension Hyperglycemia with uncontrolled diabetes type 2 Depression Previous history of smoking DVT prophylaxis obesity with BMI 33.1 Plan: Patient will be continued on telemetry monitoring. Continue with Plavix and statins. Cardiology is on board. Patient will be started on breathing chel atments. Continue the home medications and insulin sliding scale. Cardiology was consulted. Further recommendations based on the clinical course. Time with Patient: Greater than 30
[2019-06-13 05:34] LABS: Calcium 8.9 mg/dL (8.4-10.2); Potassium 4.6 mmol/L (3.5-5.1)
[2019-06-13 06:33] LABS: Glucose,Whole Blood 145 mg/dL (75-99)
[2019-06-13 07:13] VITALS: RESP 18
[2019-06-13] MEDS: INSULIN DETEMIR (LEVEMIR) 100 UNIT/ML SYR SQ SCH (07:45)
[2019-06-13] MEDS: INSULIN ASPART (NovoLOG) 100 UNIT/ML VIAL SQ SCH ×2 (07:45→11:53)
[2019-06-13] MEDS: LOSARTAN 50 MG TAB PO SCH (07:46)
[2019-06-13] MEDS: ATORVASTATIN 40 MG TAB PO SCH (07:46)
[2019-06-13] MEDS: GABAPENTIN 100 MG CAP PO SCH (07:46)
[2019-06-13] MEDS: RANOLAZINE 500 MG TAB.ER.12H PO SCH (07:46)
[2019-06-13] MEDS: CLOPIDOGREL 75 MG TAB PO SCH (07:46)
[2019-06-13] MEDS: ISOSORBIDE MONONITRATE ER 60 MG TAB.ER.24H PO SCH (07:46)
--- NOTE | 2019-06-13 11:06 | P.PN ---
Subjective Patient is resting comfortably in bed. No chest discomfort dizziness lightheadedness He was admitted with a non-Q-wave myocardial infarction and has known coronary artery disease status post coronary bypass grafting Yesterday he underwent coronary angiography but did not show any progression of his epicardial coronary artery disease and medical treatment was recommended line this most likely represents small vessel disease On examination blood pressure is 170-83 mmHg pulse rate in the 60s afebrile 97.5F Breath sounds are clear no rhonchi no crackles Heart sounds are normal no murmurs or gallops or rub Breath sounds are clear 11 abdomen soft Extremities are warm Impression coronary artery disease status post coronary artery bypass grafting line admitting diagnosis non-Q-wave myocardial infarction Hypertension LDL 79 on statins Suggest Ambulate in the hallways and if he has no symptoms he may go home today Increase rosuvastatin to 40 g by mouth daily His blood pressure is mildly elevated and I would stop metoprolol and start carv edilol 3.125 mg twice daily Continue aspirin Imdur and Plavix May consider Ranexa May go home today and follow Dr. Barrera Objective - Vital Signs Vital signs: Vital Signs Temp 97.5 F L 06/13/19 07:11 Pulse 63 06/13/19 07:11 Resp 18 06/13/19 07:11 BP 132/48 06/13/19 09:46 Pulse Ox 95 06/13/19 07:11 Intake & Output 06/12/19 06/13/19 06/13/19 18:59 06:59 18:59 Intake Total 700.422 240 Balance 700.422 240 Weight 98.7 kg Intake: IV 75 Intake, IV Titration 85.422 Amount Heparin Sod,Pork in 0.45% 85.422 NaCl 25,000 unit In 0.45 % NaCl 1 250ml.bag @ 10. 11 UNITS/KG/HR 9.997 mls/ hr IV .Q24H JAMESON Rx#: [id number] Oral 440 240 Other 100 Other: Voiding Method Toilet Toilet Toilet # Voids 1 - Labs CBC & Chem 7: 06/11/19 11:08 06/13/19 04:56 Labs: Abnormal Lab Results - Last 24 Hours (Table) 06/12/19 06/12/19 06/12/19 Range/Units 12:26 16:32 20:07 BUN (9-20) mg/dL Creatinine (0.66-1.25) mg/dL Glucose (74-99) mg/dL POC Glucose (mg/dL) 102 H 140 H 151 H (75-99) mg/dL 06/13/19 06/13/19 Range/Units 04:56 06:29 BUN 28 H (9-20) mg/dL Creatinine 1.40 H (0.66-1.25) mg/dL Glucose 193 H (74-99) mg/dL POC Glucose (mg/dL) 145 H (75-99) mg/dL
[2019-06-13 11:40] VITALS: BP 112/67; PULSE 58; TEMP 98
[2019-06-13 11:48] LABS: Glucose,Whole Blood 66 mg/dL (75-99)
[2019-06-13 12:09] LABS: Glucose,Whole Blood 79 mg/dL (75-99)
--- NOTE | 2019-06-13 13:59 | ECHOF ---
Referral Reason:chest pain MEASUREMENTS -------- HEIGHT: 172.7 cm WEIGHT: 98.9 kg BP: 129/63 IVSd: 1.7 cm (0.6 - 1.1) LVIDd: 4.1 cm (3.9 - 5.3) LVPWd: 1.8 cm (0.6 - 1.1) IVSs: 2.5 cm LVIDs: 2.7 cm LVPWs: 1.8 cm RVIDd: 4.1 cm (< 3.3) LAESV Index (A-L): 16.00 ml/m Ao Diam: 3.1 cm (2.0 - 3.7) AV Cusp: 1.9 cm (1.5 - 2.6) MV E Matthew: 0.73 m/s MV DecT: 299 ms MV A Matthew: 1.00 m/s MV E/A Ratio: 0.73 RAP: 5.00 mmHg RVSP: 17.74 mmHg FINDINGS -------- Sinus rhythm. This was a technically difficult study with suboptimal apical views. Patient is post cardiac catheterization and cannot be in left lateral position. The left ventricular size is normal. There is moderate concentric left ventricular hypertrophy. O verall left ventricular systolic function is low-normal with, an EF between 50 - 55 %. The diastoli c filling pattern is normal for the age of the patient 9.78. Apical septum LV wall motion is hypoki netic. The right ventricle is moderately enlarged. Mild spontaneous echo contrast present in the left atrium. The right atrium was not well visualized. 5.0mg of Lumason was utilized for enhancement of images Interatrial and interventricular septum intact. There is mild aortic valve sclerosis. There is no evidence of aortic regurgitation. There is no e vidence of aortic stenosis. There is trace to mild mitral regurgitation. Trace tricuspid regurgitation present. Unable to estimate RVSP due to inadequate TR jet spectral do ppler profile. The pulmonic valve was not well visualized. The aortic root size is normal. IVC Not well visulized. There is no pericardial effusion. CONCLUSIONS -------- 1. Sinus rhythm. 2. This was a technically difficult study with suboptimal apical views. 3. Patient is post cardiac catheterization and cannot be in left lateral position. 4. The left ventricular size is normal. 5. There is moderate concentric left ventricular hypertrophy. 6. Overall left ventricular systolic function is low-normal with, an EF between 50 - 55 %. 7. The diastolic filling pattern is normal for the age of the patient 9.78 8. Apical septum LV wall motion is hypokinetic. 9. The right ventricle is moderately enlarged. 10. Mild spontaneous echo contrast present in the left atrium. 11. The right atrium was not well visualized. 12. 5.0mg of Lumason was utilized for enhancement of images 13. Interatrial and interventricular septum intact. 14. There is mild aortic valve sclerosis. 15. There is no evidence of aortic regurgitation. 16. There is no evidence of aortic stenosis. 17. There is trace to mild mitral regurgitation. 18. Trace tricuspid regurgitation present. 19. Unable to estimate RVSP due to inadequate TR jet spectral doppler profile. 20. The pulmonic valve was not well visualized. 21. The aortic root size is normal. 22. IVC Not well visulized. 23. There is no pericardial effusion. MOTOR VEHICLE LICENCE EXAMINER: Vannesa Henriquez RDCS
[2019-06-13] MEDS ORDERED: CARVEDILOL 3.125 MG TAB PO SCH (17:30)
--- NOTE | 2019-06-22 23:38 | P.DS ---
Providers Date of admission: 06/12/19 13:58 Expected date of discharge: 06/13/19 Attending physician: Yumiko Gomez Consults: 06/11/19 14:05 Consult Physician Urgent Consulting Provider: Ermias Spence Consult Reason/Comments: Cardiac evaluation and treatment Do you want consulting provider notified?: Yes Primary care physician: Junaid Castañeda MD Hospital Course: Discharge Diagnosis Chest pain Acute non-ST elevated RI with elevated troponin levels. Status post cardiac catheterization. No PCI. Recent history of flu 2 months ago Coronary artery disease with history of CABG Chronic angina symptoms. Symptomatic improvement with imdur as per patient. Hypertension Hyperglycemia with uncontrolled diabetes type 2 Depression Previous history of smoking DVT prophylaxis obesity with BMI 33.1 Hospital course. 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 Patient felt neck pain and shoulder pain and heaviness in the chest. Denied any nausea or vomiting. Patient did have some shortness of breath associated with that. No headache or dizziness or lightheadedness. No recent illnesses. No leg swelling. Patient says that he was diagnosed with flu about 2 months and since then has been having intermittent shortness of breath. Patient denied any cough is from production. No fever no chills. Patient is from [place] and is the first time he is staying in [place] during winter season. EKG showed normal sinus rhythm Chest x-ray showed no acute cardio pulmonary process CT angiogram of the chest showed no evidence of pulmonary embolism. Troponin 1 negative. Second troponin went up to 1.60 and 1.37 06/12/2019 Patient denied any complains of chest pain now. Patient underwent cardiac catheterization and no intervention was done. Patient is being continued on telemetry monitoring. No complaints of chest pain. No headache or dizziness or lightheadedness. Cardiology is following. 06/13/2019 Patient denied any complaints of chest pain or shortness of breath. No headache or dizziness or lightheadedness. No neck pain or back pain. Patient will be continued on dual antiplatelet therapy. Metoprolol was changed to Coreg as per cardiology. Patient was also started on Ranexa. 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 Otherwise patient is chest pain-free and wants to be discharged home. PHYSICAL EXAMINATION: Patient is lying in the bed comfortably, no acute distress, awake alert and oriented.. HEENT: Normocephalic. Neck is supple. Pupils reactive. Nostrils clear. Oral cavity is moist. Ears reveal no drainage. Neck reveals no JVD, carotid bruits, or thyromegaly. CHEST EXAMINATION: Trachea is central. Symmetrical expansion. Lung randolph clear to auscultation and percussion. CARDIAC: Normal S1, S2 with no gallops. No murmurs ABDOMEN: Soft. Bowel sounds normal. No organomegaly. No abdominal bruits. Extremities: reveal no edema. No clubbing or cyanosis Neurologically awake, alert, oriented x3 with well-coordinated movements. No focal deficits noted Skin: No rash or skin lesions. Psychiatric: Coperative. Nonsuicidal Musculoskeletal: No joint swelling or deformity. Normal range of motion. Vital Signs Temp 97.5 F L 06/13/19 07:11 Pulse 63 06/13/19 07:11 Resp 18 06/13/19 07:11 BP 132/48 06/13/19 09:46 Pulse Ox 95 06/13/19 07:11 Patient Condition at Discharge: Fair Plan - Discharge Summary Discharge Rx Participant: No New Discharge Prescriptions: New Carvedilol [Coreg] 3.125 mg PO BID #180 tablet Clopidogrel [Plavix] 75 mg PO DAILY #30 tab Ranolazine [Ranexa] 500 mg PO Q12HR #60 tab.er.12h Rosuvastatin [Crestor] 40 mg PO HS #60 tablet Continue Insulin Glargine,Hum.rec.anlog [Lantus Solostar] 60 unit SQ DAILY Losartan Potassium 100 mg PO DAILY Gabapentin [Neurontin] 100 mg PO BID glipiZIDE [Glucotrol] 2.5 mg PO AC-BID Isosorbide Mononitrate ER [Imdur] 60 mg PO DAILY Cetirizine HCl [Zyrtec] 10 mg PO DAILY Aspirin EC [Ecotrin Low Dose] 81 mg PO DAILY Albuterol Sulfate [Proair Hfa] 2 puff INHALATION RT-Q6H PRN PRN Reason: Shortness Of Breath Multivitamins, Thera [Multivitamin (formulary)] 1 tab PO DAILY Cyanocobalamin (Vitamin B-12) [Vitamin B-12] 1,000 mcg PO DAILY Carboxymethylcellulose Sodium [Refresh Tears] 1 drop BOTH EYES DAILY PRN PRN Reason: Dry Eye(S) Discontinued Metoprolol Succinate (ER) [Toprol Xl] 25 mg PO DAILY Hydrochlorothiazide [Hydrodiuril] 25 mg PO DAILY Rosuvastatin Calcium [Crestor] 20 mg PO DAILY Discharge Medication List Albuterol Sulfate [Proair Hfa] 2 puff INHALATION RT-Q6H PRN 06/11/19 [History] Aspirin EC [Ecotrin Low Dose] 81 mg PO DAILY 06/11/19 [History] Carboxymethylcellulose Sodium [Refresh Tears] 1 drop BOTH EYES DAILY PRN 06/11/19 [History] Cetirizine HCl [Zyrtec] 10 mg PO DAILY 06/11/19 [History] Cyanocobalamin (Vitamin B-12) [Vitamin B-12] 1,000 mcg PO DAILY 06/11/19 [History] Gabapentin [Neurontin] 100 mg PO BID 06/11/19 [History] Insulin Glargine,Hum.rec.anlog [Lantus Solostar] 60 unit SQ DAILY 06/11/19 [History] Isosorbide Mononitrate ER [Imdur] 60 mg PO DAILY 06/11/19 [History] Losartan Potassium 100 mg PO DAILY 06/11/19 [History] Multivitamins, Thera [Multivitamin (formulary)] 1 tab PO DAILY 06/11/19 [History] glipiZIDE [Glucotrol] 2.5 mg PO AC-BID 06/11/19 [History] Carvedilol [Coreg] 3.125 mg PO BID #180 tablet 06/13/19 [Rx] Clopidogrel [Plavix] 75 mg PO DAILY #30 tab 06/13/19 [Rx] Ranolazine [Ranexa] 500 mg PO Q12HR #60 tab.er.12h 06/13/19 [Rx] Rosuvastatin [Crestor] 40 mg PO HS #60 tablet 06/13/19 [Rx] Follow up Appointment(s)/Referral(s): Ermias Spence MD [STAFF PHYSICIAN] - 1 Week Junaid Castañeda MD [Primary Care Provider] - 1-2 days Patient Instructions/Handouts: Chest Pain (DC) Discharge Disposition: HOME SELF-CARE
== END 2019-06-13 15:05 | disposition home or self-care (01) | DRG 282 ==
LOC: EC 10:46 → 1SOBS 14:05 → OBSVTOIN 06-12 13:58
PROVIDERS: ADMIT Internal Medicine; ATTEND Internal Medicine
PROC: 4A023N7 Measurement of Cardiac Sampling and Pressure, Left Heart, Percutaneous Approach (ICD-10-PCS; principal; 2019-06-12 11:04)
PROC: B2131ZZ Fluoroscopy of Multiple Coronary Artery Bypass Grafts using Low Osmolar Contrast (ICD-10-PCS; principal; 2019-06-12 11:04)
PROC: B2111ZZ Fluoroscopy of Multiple Coronary Arteries using Low Osmolar Contrast (ICD-10-PCS; principal; 2019-06-12 11:04)
PROC: B2181ZZ Fluoroscopy of Left Internal Mammary Bypass Graft using Low Osmolar Contrast (ICD-10-PCS; principal; 2019-06-12 11:04)
DX: I21.4 Non-ST elevation (NSTEMI) myocardial infarction (principal); E11.40 Type 2 diabetes mellitus with diabetic neuropathy, unspecified; E11.65 Type 2 diabetes mellitus with hyperglycemia; E66.9 Obesity, unspecified; Z68.33 Body mass index [BMI] 33.0-33.9, adult; E78.5 Hyperlipidemia, unspecified; F32.9 Major depressive disorder, single episode, unspecified; I10 Essential (primary) hypertension; I25.10 Atherosclerotic heart disease of native coronary artery without angina pectoris; I25.2 Old myocardial infarction; Z79.4 Long term (current) use of insulin; Z79.82 Long term (current) use of aspirin; Z79.899 Other long term (current) drug therapy; Z87.891 Personal history of nicotine dependence
CPT/HCPCS: 36415; 71046; 71275; 80048; 80053; 80061; 83735; 84484; 85025; 85610; 85730; 93005; 93306; 93455; 99285

== ENCOUNTER 2019-12-12 12:59 | Emergency (ER) | payer MEDICARE, OTHER ==
[2019-12-12 13:24] VITALS: TEMP 98.1
[2019-12-12] MEDS ORDERED: ONDANSETRON 4 MG/2 ML VIAL IVP STA (14:02)
[2019-12-12] MEDS ORDERED: SODIUM CHLORIDE 0.9% 500 ML 500 ML IV STA (14:02)
[2019-12-12] MEDS ORDERED: KETOROLAC 30 MG/ML 1 ML VIAL IVP STA (14:02)
--- NOTE | 2019-12-12 14:38 | ED ---
Abdominal Pain HPI - General Chief Complaint: Abdominal Pain Stated Complaint: abd pain Time Seen by Provider: 12/12/19 13:30 Source: patient Mode of arrival: wheelchair Limitations: no limitations - History of Present Illness Initial Comments: Patient is a 79-year-old male, with history of diabetes, hypertension, extensive heart disease, presenting to the emergency Department with complaints of right lower quadrant abdominal pain that started this morning. The patient's states that it did wake him up from sleeping this morning. 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 Patient describes the pain is mostly on the right side of his abdomen with some radiation into his right groin. Patient denies history of kidney stones. He denies any abdominal surgeries. He denies any recent fever or chills. He denies any chest pain or shortness of breath. He states he had 2 bowel moveme nts this morning. No difficulty with urination. Patient states yesterday he felt his normal self, was eating and drinking as normal. He has no further complaints at this time. Upon arrival to the ER, his vital signs are stable. - Related Data Home Medications Medication Instructions Recorded Confirmed Albuterol Sulfate [Proair Hfa] 2 puff INHALATION RT-Q6H PRN 06/11/19 06/11/19 Aspirin EC [Ecotrin Low Dose] 81 mg PO DAILY 06/11/19 06/11/19 Carboxymethylcellulose Sodium 1 drop BOTH EYES DAILY PRN 06/11/19 06/11/19 [Refresh Tears] Cetirizine HCl [Zyrtec] 10 mg PO DAILY 06/11/19 06/11/19 Cyanocobalamin (Vitamin B-12) 1,000 mcg PO DAILY 06/11/19 06/11/19 [Vitamin B-12] Gabapentin [Neurontin] 100 mg PO BID 06/11/19 06/11/19 Insulin Glargine,Hum.rec.anlog 60 unit SQ DAILY 06/11/19 06/11/19 [Lantus Solostar] Isosorbide Mononitrate ER [Imdur] 60 mg PO DAILY 06/11/19 06/11/19 Losartan Potassium 100 mg PO DAILY 06/11/19 06/11/19 Multivitamins, Thera [Multivitamin 1 tab PO DAILY 06/11/19 06/11/19 (formulary)] glipiZIDE [Glucotrol] 2.5 mg PO AC-BID 06/11/19 06/11/19 Previous Rx's Medication Instructions Recorded Clopidogrel [Plavix] 75 mg PO DAILY #30 tab 06/13/19 Ranolazine [Ranexa] 500 mg PO Q12HR #60 tab.er.12h 06/13/19 Rosuvastatin [Crestor] 40 mg PO HS #60 tablet 06/13/19 carvediloL [Coreg] 3.125 mg PO BID #180 tablet 06/13/19 Ondansetron Odt [Zofran Odt] 4 mg PO Q8HR PRN #10 tab 12/12/19 Tamsulosin [Flomax] 0.4 mg PO DAILY #7 cap 12/12/19 traMADol HCl [Ultram] 50 mg PO Q6H PRN #10 tab 12/12/19 Allergies Allergy/AdvReac Type Severity Reaction Status Date / Time morphine Allergy Rash/Hives Verified 12/12/19 13:23 Review of Systems ROS Statement: Those systems with pertinent positive or pertinent negative responses have been documented in the HPI. ROS Other: All systems not noted in ROS Statement are negative. Past Medical History Past Medical History: Chest Pain / Angina, Diabetes Mellitus, Hyperlipidemia, Hypertension, Renal Disease History of Any Multi-Drug Resistant Organisms: None Reported Past Surgical History: Coronary Bypass/CABG Additional Past Surgical History / Comment(s): quad bypass Past Psychological History: Depression Past Alcohol Use History: None Reported Past Drug Use History: None Reported General Exam - General Exam Comments Initial Comments: GENERAL: Patient is well-developed and well-nourished. Patient is nontoxic and in no acute distress, but does appear uncomfortable. HEAD: Atraumatic, normocephalic. EYES: Pupils equal round and reactive to light, extraocular movements intact, sclera anicteric, conjunctiva are normal. Eyelids were unremarkable. ENT: TMs normal, nares patent, oropharynx clear without exudates. Moist mucous membranes. NECK: Normal range of motion, supple without lymphadenopathy or JVD. LUNGS: Unlabored respirations. Breath sounds clear to auscultation bilaterally and equal. No wheezes rales or rhonchi. HEART: Regular rate and rhythm without murmurs, rubs or gallops. ABDOMEN: Tenderness with palpation of right lower quadrant, right side of the abdomen. Soft, normoactive bowel sounds. No guarding, no rebound. No masses appreciated. : Deferred MUSCULOSKELETAL: Normal extremities with adequate strength and normal range of motion, no pitting or edema. No clubbing or cyanosis. NEUROLOGICAL: Patient is alert and oriented x 3. Normal speech, normal gait. PSYCH: Normal mood, normal affect. SKIN: Warm, Dry, normal turgor, no rashes or lesions noted. Limitations: no limitations Course Vital Signs 12/12/19 12/12/19 13:19 15:02 Temperature 98.1 F Pulse Rate 48 L 50 L Respiratory 20 17 Rate Blood Pressure 154/54 103/44 O2 Sat by Pulse 97 98 Oximetry Medical Decision Making - Medical Decision Making Patient is a 79-year-old male history of diabetes, hypertension, extensive heart disease, presenting with right lower quadrant pain that woke up this morning. No history of kidney stones, no abdominal surgeries. His vitals are stable upon arrival. Lab work reveals a slight increase in creatinine at 2.07, lactic acid is normal, lipase is normal. No white count. Urine reveals trace amount blood, Rbc's, no evidence of infection. CT of the abdomen shows an obstructing distal ureter right calculus with right-sided hydronephrosis. Patient was given fluids, pain control. He states his pain is minimal at this time. I did review these findings with the patient. He is stable for discharge. Recommended increased fluid intake, he will be sent home with Flomax, pain control as well as Zofran. He is in agreement with this plan of care. I will give patient referral to urology. Return parameters were discussed with the patient and his and they both verbalized understanding. Case discussed with Dr. Rojo. - Lab Data Result diagrams: 12/12/19 14:21 12/12/19 14:21 Lab Results 12/12/19 12/12/19 12/12/19 Range/Units 14:21 14:21 14:21 WBC 9.4 (3.8-10.6) k/uL RBC 3.58 L (4.30-5.90) m/uL Hgb 10.4 L (13.0-17.5) gm/dL Hct 31.9 L (39.0-53.0) % MCV 89.2 (80.0-100.0) fL MCH 29.0 (25.0-35.0) pg MCHC 32.5 (31.0-37.0) g/dL RDW 16.1 H (11.5-15.5) % Plt Count 203 (150-450) k/uL Neutrophils % 85 % Lymphocytes % 6 % Monocytes % 5 % Eosinophils % 2 % Basophils % 0 % Neutrophils # 8.0 H (1.3-7.7) k/uL Lymphocytes # 0.6 L (1.0-4.8) k/uL Monocytes # 0.5 (0-1.0) k/uL Eosinophils # 0.1 (0-0.7) k/uL Basophils # 0.0 (0-0.2) k/uL Anisocytosis Slight PT 9.9 (9.0-12.0) sec INR 0.9 (<1.2) APTT 21.1 L (22.0-30.0) sec Sodium (137-145) mmol/L Potassium (3.5-5.1) mmol/L Chloride (98-107) mmol/L Carbon Dioxide (22-30) mmol/L Anion Gap mmol/L BUN (9-20) mg/dL Creatinine (0.66-1.25) mg/dL Est GFR (CKD-EPI)AfAm (>60 ml/min/1.73 sqM) Est GFR (CKD-EPI)NonAf (>60 ml/min/1.73 sqM) Glucose (74-99) mg/dL Plasma Lactic Acid Manpreet (0.7-2.0) mmol/L Calcium (8.4-10.2) mg/dL Total Bilirubin (0.2-1.3) mg/dL AST (17-59) U/L ALT (4-49) U/L Alkaline Phosphatase (38-126) U/L Total Protein (6.3-8.2) g/dL Albumin (3.5-5.0) g/dL Amylase (30-110) U/L Lipase (23-300) U/L Urine Color Yellow Urine Appearance Clear (Clear) Urine pH 6.0 (5.0-8.0) Ur Specific Thornton 1.015 (1.001-1.035) Urine Protein Trace H (Negative) Urine Glucose (UA) 1+ H (Negative) Urine Ketones Negative (Negative) Urine Blood Trace H (Negative) Urine Nitrite Negative (Negative) Urine Bilirubin Negative (Negative) Urine Urobilinogen <2.0 (<2.0) mg/dL Ur Leukocyte Esterase Trace H (Negative) Urine RBC 11 H (0-5) /hpf Urine WBC 2 (0-5) /hpf Urine Mucus Rare H (None) /hpf 12/12/19 12/12/19 Range/Units 14:21 14:21 WBC (3.8-10.6) k/uL RBC (4.30-5.90) m/uL Hgb (13.0-17.5) gm/dL Hct (39.0-53.0) % MCV (80.0-100.0) fL MCH (25.0-35.0) pg MCHC (31.0-37.0) g/dL RDW (11.5-15.5) % Plt Count (150-450) k/uL Neutrophils % % Lymphocytes % % Monocytes % % Eosinophils % % Basophils % % Neutrophils # (1.3-7.7) k/uL Lymphocytes # (1.0-4.8) k/uL Monocytes # (0-1.0) k/uL Eosinophils # (0-0.7) k/uL Basophils # (0-0.2) k/uL Anisocytosis PT (9.0-12.0) sec INR (<1.2) APTT (22.0-30.0) sec Sodium 137 (137-145) mmol/L Potassium 5.3 H (3.5-5.1) mmol/L Chloride 105 (98-107) mmol/L Carbon Dioxide 19 L (22-30) mmol/L Anion Gap 13 mmol/L BUN 34 H (9-20) mg/dL Creatinine 2.07 H (0.66-1.25) mg/dL Est GFR (CKD-EPI)AfAm 34 (>60 ml/min/1.73 sqM) Est GFR (CKD-EPI)NonAf 30 (>60 ml/min/1.73 sqM) Glucose 170 H (74-99) mg/dL Plasma Lactic Acid Manpreet 1.2 (0.7-2.0) mmol/L Calcium 9.6 (8.4-10.2) mg/dL Total Bilirubin 0.6 (0.2-1.3) mg/dL AST 23 (17-59) U/L ALT 18 (4-49) U/L Alkaline Phosphatase 68 (38-126) U/L Total Protein 7.6 (6.3-8.2) g/dL Albumin 5.0 (3.5-5.0) g/dL Amylase 52 (30-110) U/L Lipase 143 (23-300) U/L Urine Color Urine Appearance (Clear) Urine pH (5.0-8.0) Ur Specific Thornton (1.001-1.035) Urine Protein (Negative) Urine Glucose (UA) (Negative) Urine Ketones (Negative) Urine Blood (Negative) Urine Nitrite (Negative) Urine Bilirubin (Negative) Urine Urobilinogen (<2.0) mg/dL Ur Leukocyte Esterase (Negative) Urine RBC (0-5) /hpf Urine WBC (0-5) /hpf Urine Mucus (None) /hpf Disposition Clinical Impression: Right ureteral stone, Right sided abdominal pain, Nausea & vomiting Disposition: HOME SELF-CARE Condition: Stable Instructions (If sedation given, give patient instructions): Kidney Stones (ED) Additional Instructions: Please return to the Emergency Department if symptoms worsen or any other concerns. Take medications as prescribed. Follow up with urology as discussed. Prescriptions: Tamsulosin [Flomax] 0.4 mg PO DAILY #7 cap traMADol HCl [Ultram] 50 mg PO Q6H PRN #10 tab PRN Reason: Pain Ondansetron Odt [Zofran Odt] 4 mg PO Q8HR PRN #10 tab PRN Reason: Nausea Is patient prescribed a controlled substance at d/c from ED?: Yes When asked, does pt state using other controlled substances?: No If prescribed controlled substance>3 days was MAPS reviewed?: Prescribed <3 Days If opioid is for acute pain is fill amount 7 days or less?: Yes If Rx opioid, was Start Talking consent form obtained?: Yes Referrals: Junaid Castañeda MD [Primary Care Provider] - 1-2 days Cruz Acosta MD [STAFF PHYSICIAN] - 1-2 days
[2019-12-12 14:43] LABS: Anisocytosis Slight; Basophils % (A) 0 %; Eosinophils # (A) 0.1 k/uL (0-0.7); Eosinophils % (A) 2 %; HCT 31.9 % (39.0-53.0); HGB 10.4 gm/dL (13.0-17.5); Lymphocytes # (A) 0.6 k/uL (1.0-4.8); Lymphocytes % (A) 6 %; MCHC 32.5 g/dL (31.0-37.0); MCV 89.2 fL (80.0-100.0); Mean Platelet Volume 7.8; Monocytes # (A) 0.5 k/uL (0-1.0); Monocytes % (A) 5 %; Neutrophils % (A) 85 %; Platelet Count 203 k/uL (150-450); RBC 3.58 m/uL (4.30-5.90); RDW 16.1 % (11.5-15.5); WBC 9.4 k/uL (3.8-10.6)
[2019-12-12 14:47] LABS: Appearance,Urine Clear (Clear); Bilirubin,Urine Negative (Negative); Blood,Urine Trace (Negative); Color,Urine Yellow; Glucose,Urine (UA) 1+ (Negative); Ketones,Urine Negative (Negative); Leukocyte Esterase,Urine Trace (Negative); Mucus,Urine Rare /hpf; Nitrite,Urine Negative (Negative); Protein,Urine Trace (Negative); RBC,Urine 11 /hpf (0-5); Specific Gravity,Urine 1.015 (1.001-1.035); Urobilinogen,Urine <2.0 mg/dL (<2.0); WBC,Urine 2 /hpf (0-5)
[2019-12-12 14:55] LABS: Calcium 9.6 mg/dL (8.4-10.2); Potassium 5.3 mmol/L (3.5-5.1); Total Bilirubin 0.6 mg/dL (0.2-1.3); Total Protein 7.6 g/dL (6.3-8.2)
[2019-12-12 15:00] LABS: INR 0.9 (<1.2); Prothrombin Time 9.9 sec (9.0-12.0)
[2019-12-12 15:01] LABS: Partial Thromboplastin Time 21.1 sec (22.0-30.0)
--- NOTE | 2019-12-12 15:42 | CT ---
EXAMINATION TYPE: CT abdomen pelvis wo con DATE OF EXAM: 12/12/2019 COMPARISON: None HISTORY: Right flank pain. CT DLP: 1005.3 mGycm Automated exposure control for dose reduction was used. Multiple axial sections were obtained from the diaphragm to the floor the pelvis without contrast. Lung bases are clear of consolidation. There is mild interstitial fibrotic change at the posterior elly ng bases. There is no pleural effusion. Heart size is fairly normal. There is no pericardial effusion . Abdominal aorta is atheromatous. Liver spleen stomach pancreas gallbladder appear normal. Bile duct s are not dilated. Stomach appears normal. There is no adrenal mass. There is right-sided hydronephrosis and hydroureter. There is 4 mm obstruct ing calculus at the right ureterovesical junction. There is 3 mm calculus lower pole right kidney. Th ere is right-sided perinephric edema. There is no retroperitoneal adenopathy. Bladder is almost empty . There is no inguinal hernia. There is no free fluid in the pelvis. Appendix is posterior and medial and appears normal. There is no mesenteric edema. There is no ascites or free air. There is no bowel obstruction. There i s no inguinal hernia. Lumbar vertebra have fairly normal alignment. There is disc space narrowing throughout the lumbar spi ne with spurring and mild vacuum disc. There is no compression fracture. The bony pelvis appears inta ct. IMPRESSION: Obstructing calculus distal right ureter with right-sided hydronephrosis and hydroureter. Small calcu guillermo right kidney.
[2019-12-12 16:14] VITALS: BP 141/89; PULSE 89; RESP 16
== END 2019-12-12 16:14 | disposition home or self-care (01) ==
LOC: EC 12:59
DX: N13.2 Hydronephrosis with renal and ureteral calculous obstruction (principal); E11.9 Type 2 diabetes mellitus without complications; I11.9 Hypertensive heart disease without heart failure; I20.9 Angina pectoris, unspecified; Z95.1 Presence of aortocoronary bypass graft; Z79.4 Long term (current) use of insulin; Z79.82 Long term (current) use of aspirin; Z79.899 Other long term (current) drug therapy; Z88.5 Allergy status to narcotic agent
CPT/HCPCS: 36415; 80053; 82150; 83605; 83690; 85025; 85610; 85730; 81001; 74176; 99284; 96374; 96375; 96361; J2405; J1885

== ENCOUNTER → 2020-03-10 | Outpatient (CLI) | payer MEDICARE, OTHER ==
[2020-03-10 16:14] LABS: African American GFR (CKD) 38.3 (60.0-200.0); Albumin 4.4 g/dL (3.80-4.90); Albumin/Globulin Ratio 2.32 (1.60-3.17); Anion Gap 8.6 mmol/L (4.00-12.00); BUN/Creat Ratio 13.68 Ratio (12.00-20.00); Calcium 9.1 mg/dL (8.7-10.3); Carbon Dioxide 24.4 mmol/L (21.6-31.8); Chol/HDL Ratio 3.03; Globulin 1.9 g/dL (1.6-3.3); Potassium 4.8 mmol/L (3.5-5.5); Total Bilirubin 0.3 mg/dL (0.3-1.2); Total Protein 6.3 g/dL (6.2-8.2)
[2020-03-10 17:20] LABS: Hemoglobin A1C 6.2 % (4.0-6.0)
== END | disposition home or self-care (01) ==
LOC: LABWHC1 09:52
PROVIDERS: ATTEND Internal Medicine Endocrinology, Diabetes & Metabolism
DX: E11.65 Type 2 diabetes mellitus with hyperglycemia (principal)
CPT/HCPCS: 36415; 80053; 80061; 82043; 82570; 83036; 84443

== ENCOUNTER → 2020-06-14 | Outpatient (CLI) | payer MEDICARE, OTHER ==
[2020-06-14 20:26] LABS: Chol/HDL Ratio 3.56; LDL Cholesterol,Calculated 67.8 mg/dL (0.0-131.0); VLDL Calculation 14.2 mg/dL (5.00-40.00)
== END | disposition home or self-care (01) ==
LOC: LABWHC1 10:51
PROVIDERS: ATTEND Nurse Practitioner Adult Health
DX: E78.2 Mixed hyperlipidemia (principal)
CPT/HCPCS: 36415; 80061; 84450; 84460

== ENCOUNTER → 2021-05-01 | Outpatient (CLI) | payer MEDICARE, OTHER ==
[2021-05-01 22:19] LABS: ALT 16 U/L (10-49); AST 15 U/L (14-35); African American GFR (CKD) 46.5 (60.0-200.0); Albumin 4.4 g/dL (3.8-4.9); Albumin/Globulin Ratio 1.91 (1.60-3.17); Alkaline Phosphatase 94 U/L (41-126); Calcium 9.3 mg/dL (8.7-10.3); Carbon Dioxide 21.5 mmol/L (20.0-27.5); Chloride 102 mmol/L (96-109); Chol/HDL Ratio 4.04 Ratio; Globulin 2.3 g/dL (1.6-3.3); Glucose 202 mg/dL (70-110); LDL Cholesterol,Calculated 107.8 mg/dL (0.0-131.0); Non-African American GFR(CKD) 40.1 (60.0-200.0); Potassium 4.6 mmol/L (3.5-5.5); Sodium 139 mmol/L (135-145); Total Protein 6.7 g/dL (6.2-8.2); VLDL Calculation 15.62 mg/dL (5.00-40.00)
== END | disposition home or self-care (01) ==
LOC: LABWHC1 11:41
PROVIDERS: ATTEND Internal Medicine Interventional Cardiology
DX: E78.2 Mixed hyperlipidemia (principal)
CPT/HCPCS: 36415; 80053; 80061

== ENCOUNTER 2021-08-25 10:52 | Observation (INO) | payer MEDICARE, OTHER ==
--- NOTE | 2021-08-25 11:35 | XR ---
EXAMINATION TYPE: XR chest 1V portable DATE OF EXAM: 08/25/2021 11:26 AM COMPARISON:Chest radiographs from 06/11/2019 TECHNIQUE: XR chest 1V portable Frontal view of the chest. CLINICAL INDICATION:Male, 81 years old with history of chest pain; FINDINGS: Lungs/Pleura: There is no evidence of pleural effusion, focal consolidation, or pneumothorax. Pulmonary vascularity: Unremarkable. Heart/mediastinum: Cardiomediastinal silhouette is unremarkable. Musculoskeletal: No acute osseous pathology. Midline sternotomy wires are noted and stable. IMPRESSION: No acute cardiopulmonary disease/process.
[2021-08-25 11:55] LABS: Basophils # (A) 0.1 k/uL (0-0.2); Basophils % (A) 1 %; Eosinophils # (A) 0.3 k/uL (0-0.7); Eosinophils % (A) 3 %; HCT 33.2 % (39.0-53.0); HGB 10.4 gm/dL (13.0-17.5); Lymphocytes # (A) 1.3 k/uL (1.0-4.8); Lymphocytes % (A) 15 %; MCH 29.4 pg (25.0-35.0); MCHC 31.4 g/dL (31.0-37.0); MCV 93.5 fL (80.0-100.0); Monocytes # (A) 0.7 k/uL (0-1.0); Monocytes % (A) 9 %; Neutrophils % (A) 70 %; Platelet Count 224 k/uL (150-450); RBC 3.55 m/uL (4.30-5.90); RDW 15.3 % (11.5-15.5); WBC 8.6 k/uL (3.8-10.6)
[2021-08-25 11:59] LABS: INR 0.9 (<1.2)
[2021-08-25 12:00] LABS: Partial Thromboplastin Time 22.5 sec (22.0-30.0); Prothrombin Time 10.3 sec (9.0-12.0)
[2021-08-25 12:01] LABS: Albumin 4.2 g/dL (3.5-5.0); Potassium 4.2 mmol/L (3.5-5.1); Total Bilirubin 0.4 mg/dL (0.2-1.3); Total Protein 6.9 g/dL (6.3-8.2)
[2021-08-25] MEDS ORDERED: SODIUM CHLORIDE 0.9% 500 ML 500 ML IV STA (12:56)
[2021-08-25] MEDS ORDERED: ACETAMINOPHEN TAB 325 MG TAB PO PRN (12:56)
[2021-08-25] MEDS ORDERED: NALOXONE 0.4 MG/ML 1 ML VIAL IV PRN (12:56)
--- NOTE | 2021-08-25 13:48 | ED ---
General Adult HPI - General Chief complaint: Chest Pain Stated complaint: Chest pain Time Seen by Provider: 08/25/21 11:02 Source: patient, EMS, RN notes reviewed, old records reviewed Mode of arrival: EMS Limitations: no limitations - History of Present Illness Initial comments: Patient is a 81-year-old male with past medical history remarkable for cardiac disease including quadruple bypass, hypertension, hyperlipidemia, diabetes who is transferred from an outside hospital for cardiology evaluation. At this outside hospital in [place], [place], there was no sales hunter on site. Patient does receive care through cardiology here. Patient sees Dr. Barrera. Therefore patient was transferred here. Patient originally presented to the outside hospital yesterday morning. He was having 2 day history of intermittent chest pain with associated shortness of breath. It is all since passed. Cardiac workup at the outside hospital showed to determine troponins as well as a normal EKG. He received aspirin there. He currently has no acute complaints. No fevers, chills, sick contacts. Denies any current chest pain. States the chest pain over the last 2 days occurred because he was climbing stairs helping family members move. Presents for cardiac evaluation. I was able to speak with the charge nurse at the outside facility who conveyed the workup and results to me. - Related Data Home Medications Medication Instructions Recorded Confirmed Aspirin EC [Ecotrin Low Dose] 81 mg PO DAILY 06/11/19 08/25/21 Cyanocobalamin (Vitamin B-12) 2,000 mcg PO DAILY 06/11/19 08/25/21 [Vitamin B-12] Isosorbide Mononitrate ER [Imdur] 60 mg PO DAILY 06/11/19 08/25/21 Multivitamins, Thera [Multivitamin 1 tab PO DAILY 06/11/19 08/25/21 (formulary)] glipiZIDE [Glucotrol] 5 mg PO DAILY 06/11/19 08/25/21 Escitalopram [Lexapro] 20 mg PO DAILY 08/25/21 08/25/21 Ferrous Sulfate [Iron (65 MG 325 mg PO BID 08/25/21 08/25/21 Elemental)] Losartan/Hydrochlorothiazide 1 tab PO DAILY 08/25/21 08/25/21 [Losartan-Hctz 100-12.5 mg Tab] Meloxicam 15 mg PO DAILY 08/25/21 08/25/21 Metoprolol Tartrate [Lopressor] 25 mg PO BID 08/25/21 08/25/21 Montelukast [Singulair] 10 mg PO HS 08/25/21 08/25/21 Ranolazine [Ranexa] 500 mg PO BID 08/25/21 08/25/21 Rosuvastatin Calcium [Crestor] 40 mg PO HS 08/25/21 08/25/21 amLODIPine [Norvasc] 5 mg PO DAILY 08/25/21 08/25/21 cycloSPORINE 0.05% OPHTH SOLN 1 drop BOTH EYES BID 08/25/21 08/25/21 [Restasis] glipiZIDE [Glucotrol] 10 mg PO HS 08/25/21 08/25/21 Allergies Allergy/AdvReac Type Severity Reaction Status Date / Time morphine Allergy Rash/Hives Verified 08/25/21 12:58 lorazepam [From Ativan] AdvReac Confusion, Verified 08/25/21 12:58 altered mental prednisone AdvReac cardiac Verified 08/25/21 12:59 issues Review of Systems ROS Statement: Those systems with pertinent positive or pertinent negative responses have been documented in the HPI. Review of Systems: CONST: Denies fever EYES: Denies blurry vision ENT: Denies nasal congestion C/V: Denies Chest pain RESP: Denies shortness of breath GI: Denies abdominal pain : Denies dysuria SKIN: Denies rash. MSK: Denies joint pain. NEURO: Denies headache ROS Other: All systems not noted in ROS Statement are negative. Past Medical History Past Medical History: Chest Pain / Angina, Diabetes Mellitus, Hyperlipidemia, Hypertension, Renal Disease History of Any Multi-Drug Resistant Organisms: None Reported Past Surgical History: Coronary Bypass/CABG Additional Past Surgical History / Comment(s): quad bypass Past Psychological History: Depression Smoking Status: Former smoker Past Alcohol Use History: None Reported Past Drug Use History: None Reported General Exam - General Exam Comments Initial Comments: General: Appears in no acute distress. HEAD: Normal with no signs of head trauma. EYES: PERRLA, EOMI, conjunctiva normal, no discharge. ENT: Hearing grossly intact, normal oropharynx. RESPIRATORY: Clear breath sounds bilaterally. No wheezes, rales, or rhonchi. C/V: Regular rate and rhythm. S1 and S2 auscultated, no edema, peripheral pulses 2+ and intact throughout ABD: Abd is soft, nontender, nondistended EXT: Normal range of motion, no obvious deformity SKIN: No rashes or lesions observed on exposed skin. NEURO: Alert and oriented x 4. Cranial nerves II-XII intact. No focal sensory or strength deficits. Limitations: no limitations Course Vital Signs 08/25/21 08/25/21 08/25/21 10:54 12:00 13:25 Temperature 98.8 F Pulse Rate 55 L 61 51 L Respiratory 18 16 16 Rate Blood Pressure 150/68 140/62 153/66 O2 Sat by Pulse 98 97 96 Oximetry Medical Decision Making - Medical Decision Making Based on the patient's presentation and physical exam, there is concern for possible cardiopulmonary etiology for his symptoms. Patient presents stable f ollowing 2 indeterminate troponins at the outside facility. EKG was unremarkable. Patient is currently asymptomatic. I do believe he justifies in observation telemetry admission. We will repeat cardiac labs here as well as order an echo and EKG and chest x-ray. He was in agreement this plan. EKG showed no signs of acute ischemia. Laboratory studies were remarkable for what appears to be an elevated BUN/creatinine 36 and 1.7 respectively, likely secondary to CK D. Troponin is negative at this time. Chest x-ray shows no acute cardio pulmonary process. On reevaluation come patient remains unchanged. Patient already received an aspirin at the outside facility. He is asymptomatic. He'll be admitted for evaluation by cardiology. He was in agreement with this plan. I spoke with the admitting team, Dr. self who is covering for Dr. Castañeda who accepted the patient. patient was therefore admitted to observation. Cardiology is consulted. - Lab Data Result diagrams: 08/25/21 11:44 08/25/21 11:44 Lab Results 08/25/21 08/25/21 08/25/21 Range/Units 11:44 11:44 11:44 WBC 8.6 (3.8-10.6) k/uL RBC 3.55 L (4.30-5.90) m/uL Hgb 10.4 L (13.0-17.5) gm/dL Hct 33.2 L (39.0-53.0) % MCV 93.5 (80.0-100.0) fL MCH 29.4 (25.0-35.0) pg MCHC 31.4 (31.0-37.0) g/dL RDW 15.3 (11.5-15.5) % Plt Count 224 (150-450) k/uL MPV 8.0 Neutrophils % 70 % Lymphocytes % 15 % Monocytes % 9 % Eosinophils % 3 % Basophils % 1 % Neutrophils # 6.0 (1.3-7.7) k/uL Lymphocytes # 1.3 (1.0-4.8) k/uL Monocytes # 0.7 (0-1.0) k/uL Eosinophils # 0.3 (0-0.7) k/uL Basophils # 0.1 (0-0.2) k/uL PT 10.3 (9.0-12.0) sec INR 0.9 (<1.2) APTT 22.5 (22.0-30.0) sec Sodium 139 (137-145) mmol/L Potassium 4.2 (3.5-5.1) mmol/L Chloride 103 (98-107) mmol/L Carbon Dioxide 26 (22-30) mmol/L Anion Gap 10 mmol/L BUN 36 H (9-20) mg/dL Creatinine 1.70 H (0.66-1.25) mg/dL Est GFR (CKD-EPI)AfAm 43 (>60 ml/min/1.73 sqM) Est GFR (CKD-EPI)NonAf 37 (>60 ml/min/1.73 sqM) Glucose 184 H (74-99) mg/dL Calcium 9.0 (8.4-10.2) mg/dL Magnesium 2.0 (1.6-2.3) mg/dL Total Bilirubin 0.4 (0.2-1.3) mg/dL AST 17 (17-59) U/L ALT 13 (4-49) U/L Alkaline Phosphatase 63 (38-126) U/L Troponin I (0.000-0.034) ng/mL NT-Pro-B Natriuret Pep pg/mL Total Protein 6.9 (6.3-8.2) g/dL Albumin 4.2 (3.5-5.0) g/dL 08/25/21 08/25/21 Range/Units 11:44 11:44 WBC (3.8-10.6) k/uL RBC (4.30-5.90) m/uL Hgb (13.0-17.5) gm/dL Hct (39.0-53.0) % MCV (80.0-100.0) fL MCH (25.0-35.0) pg MCHC (31.0-37.0) g/dL RDW (11.5-15.5) % Plt Count (150-450) k/uL MPV Neutrophils % % Lymphocytes % % Monocytes % % Eosinophils % % Basophils % % Neutrophils # (1.3-7.7) k/uL Lymphocytes # (1.0-4.8) k/uL Monocytes # (0-1.0) k/uL Eosinophils # (0-0.7) k/uL Basophils # (0-0.2) k/uL PT (9.0-12.0) sec INR (<1.2) APTT (22.0-30.0) sec Sodium (137-145) mmol/L Potassium (3.5-5.1) mmol/L Chloride (98-107) mmol/L Carbon Dioxide (22-30) mmol/L Anion Gap mmol/L BUN (9-20) mg/dL Creatinine (0.66-1.25) mg/dL Est GFR (CKD-EPI)AfAm (>60 ml/min/1.73 sqM) Est GFR (CKD-EPI)NonAf (>60 ml/min/1.73 sqM) Glucose (74-99) mg/dL Calcium (8.4-10.2) mg/dL Magnesium (1.6-2.3) mg/dL Total Bilirubin (0.2-1.3) mg/dL AST (17-59) U/L ALT (4-49) U/L Alkaline Phosphatase (38-126) U/L Troponin I <0.012 (0.000-0.034) ng/mL NT-Pro-B Natriuret Pep 734 pg/mL Total Protein (6.3-8.2) g/dL Albumin (3.5-5.0) g/dL - EKG Data -: EKG Interpreted by Me EKG Comments: 12-lead Electrocardiogram Interpretation Note EKG was reviewed and interpreted by myself. 12-lead ECG performed at 1059 is interpreted by me as revealing normal sinus rhythm at a rate of 54 beats per minute. Frederica is normal. NM interval is 184 ms, QRS durations 101 ms, QTc is 440 ms.. There were no ST or T wave abnormalities to suggest myocardial ischemia or injury. R wave progression across the precordium was satisfactory. By my interpretation this EKG is non-diagnostic for acute ischemia. Disposition Clinical Impression: Chest pain Disposition: ADMITTED IP TO THIS HOSP Condition: Stable Decision Time: 12:24
[2021-08-25 14:09] LABS: Glucose,Whole Blood 159 mg/dL (75-99)
[2021-08-25 16:45] LABS: Glucose,Whole Blood 214 mg/dL (75-99)
[2021-08-25] MEDS: HEPARIN SODIUM,PORCINE/PF 5,000 UNIT/0.5 ML SYRINGE SQ SCH ×2 (17:01→23:43)
[2021-08-25] MEDS: glipiZIDE 10 MG TAB PO SCH (20:02)
[2021-08-25] MEDS: RANOLAZINE 500 MG TAB.ER.12H PO SCH (20:02)
[2021-08-25] MEDS: cycloSPORINE 0.05% OPHTH 0.4 ML DROPERETTE BOTH EYES SCH (20:03)
[2021-08-25] MEDS: MONTELUKAST 10 MG TAB PO SCH (20:03)
[2021-08-25] MEDS: METOPROLOL TARTRATE 25 MG TAB PO SCH (20:03)
[2021-08-25] MEDS: ATORVASTATIN 80 MG TAB PO SCH (20:03)
[2021-08-25 20:55] LABS: Glucose,Whole Blood 138 mg/dL (75-99)
[2021-08-26 06:56] LABS: Glucose,Whole Blood 128 mg/dL (75-99)
[2021-08-26] MEDS ORDERED: glipiZIDE 5 MG TAB PO SCH (07:30)
[2021-08-26] MEDS ORDERED: NITROGLYCERIN SL TABS 0.4 MG TAB SUBLINGUAL PRN (08:49)
[2021-08-26] MEDS ORDERED: ISOSORBIDE MONONITRATE ER 60 MG TAB.ER.24H PO SCH (09:00)
[2021-08-26] MEDS ORDERED: ISOSORBIDE MONONITRATE ER 30 MG TAB.ER.24H PO SCH (09:00)
[2021-08-26] MEDS: ASPIRIN 81 MG PO SCH (09:22)
[2021-08-26] MEDS: HEPARIN SODIUM,PORCINE/PF 5,000 UNIT/0.5 ML SYRINGE SQ SCH ×3 (09:22→21:01)
[2021-08-26] MEDS: amLODIPine 5 MG TAB PO SCH (09:23)
[2021-08-26] MEDS: hydroCHLOROthiazide 12.5 MG CAP PO SCH (09:23)
[2021-08-26] MEDS: cycloSPORINE 0.05% OPHTH 0.4 ML DROPERETTE BOTH EYES SCH ×2 (09:23→20:59)
[2021-08-26] MEDS: LOSARTAN 50 MG TAB PO SCH (09:23)
[2021-08-26] MEDS: METOPROLOL TARTRATE 25 MG TAB PO SCH ×2 (09:23→20:59)
[2021-08-26] MEDS: RANOLAZINE 500 MG TAB.ER.12H PO SCH ×2 (09:23→20:58)
[2021-08-26 12:09] LABS: Glucose,Whole Blood 188 mg/dL (75-99)
--- NOTE | 2021-08-26 13:10 | P.CRDCN ---
History of Present Illness Consult date: 08/26/21 Consult reason: chest pain History of present illness: History of present illness: This is an 81-year-old male patient of Dr. Barrera with past medical history of coronary artery disease with previous CABG 4 vessel in 2008, non-ST elevated myocardial infarction in May 2019, hypertension, hyperlipidemia, diabetes mellitus type 2, diabetic neuropathy, chronic kidney disease stage III. Patient was last hospitalized in May 2019 at which time he was treated for non-ST elevated myocardial infarction. Cardiac catheterization revealed severe triple vessel coronary artery disease with chronically occluded left circumflex, distal right coronary artery and subtotally occluded LAD. Patent RUIZ to LAD. Patent radial bypass to the diagonal branch. Patent saphenous vein graft to the PDA with 20-30% plaque throughout the graft. Collaterals to the circumflex obtuse marginal branch from the right coronary artery. Recommendations at that time was for aggressive medical management. Echocardiogram at that time revealed EF of 50-55%, trace to mild mitral regurgitation, trace tricuspid regurgitation. Patient has had episodes of bilateral shoulder pain and neck pain with exertion. He states it usually lasts about 10 minutes and leads on its own when he sits down. He also has some sweating sometimes. He denies having any chest pain. He states that on his previous HI he had shoulder pain as well. He also gives history of having steroids oral started last week for hip pain by PCP. He has been taking all of his medications as directed. EKG sinus bradycardia Troponin negative on 3 draws. ProBNP 734. Hemoglobin 10.4. BUN 36 and creatinine 1.7 Chest x-ray reveals no acute pulmonary disease. Home cardiac medications: Norvasc 5 mg daily, aspirin 81 mg daily Imdur 60 mg daily, losartan/hydrochlorothiazide 94157 0.5 mg daily, Lopressor 25 mg twice daily, Ranexa 500 mg twice daily, Crestor 40 mg at bedtime Review Of Systems: Constitutional: No fever, no chills. No weakness, fatigue or lethargy. EENT: No headache. No dizziness. Lungs: No shortness of breath, cough, no sputum production. No wheezing. Cardiovascular: No chest pain, no lower extremity edema. No palpitations. No paroxysmal nocturnal dyspnea. No orthopnea. No lightheadedness or dizziness. No syncopal episodes. Abdominal: No abdominal pain. No nausea, vomiting. No diarrhea. No constipation. No bloody or tarry stools.. No loss of appetite. Genitourinary: No dysuria.. No urinary retention. Musculoskeletal: No myalgias. No muscle weakness, no gait dysfunction, no frequent falls. No back pain. Reports bilateral shoulder and neck pain, resolved. Integumentary: No wounds, no lesions. No rash or pruritus. No unusual bruising. Neurologic: No aphasia. No facial droop. No change in mentation. No head injury. No headache. No paralysis. No paresthesia. Psychiatric: No depression. No anxiety. Endocrine: No abnormal blood sugars. Physical examination: Gen: This is an 81-year-old male resting in bed and appears to be in no acute distress. HEENT: Head is atraumatic, normocephalic. Pupils equal, round. Sclerae is anic teric. NECK: Supple. No JVD. No lymphadenopathy. No thyromegaly. LUNGS: Clear to auscultation. No wheezes or rhonchi. No intercostal retractions. HEART: Regular rate and rhythm. No murmur. ABDOMEN: Soft. Bowel sounds are present. No masses. No tenderness. EXTREMITIES: No pedal edema. No calf tenderness. NEUROLOGICAL: Patient is awake, alert and oriented x3. Cranial nerves 2 through 12 are grossly intact. Assessment: Acute coronary syndrome ruled out Bilateral shoulder and neck pain with exertion concerning for etiology of coronary artery disease with history of severe triple vessel disease on last cardiac catheterization 05/2019 Coronary artery disease status post 4 vessel CABG Non-ST elevated myocardial infarction in May 2019 Hypertension Hyperlipidemia Diabetes mellitus type 2 Chronic kidney disease stage III Plan: Patient tentatively scheduled for Lexiscan stress test for tomorrow and will be nothing by mouth after midnight. Dr. Barrera will make final determination w hether patient undergoes stress test versus cardiac catheterization Continue patient's cardiac medications from home Increase Imdur to 90 mg daily Obtain 2-D echocardiogram and Doppler study to assess cardiac structure and function Further recommendations to follow based upon clinical course Thank you kindly for this consultation. Nurse practitioner note has been reviewed, I agree with documented findings and plan of care. Patient was seen and examined. The patient is a 79-year-old male who follows with Dr. Barrera in the office who recently presented to the hospital with new onset of shoulder and chest discomfort while using his snowblower. He states some snow had fallen off of his roof, therefore he was attempting to move it from outside his garage door. He states he does have chronic back discomfort so when he started to push through the snow and developed neck pain, he continued to push. At that time he then developed a sharp squeezing sensation throughout his chest. EKG shows [address] depression in the lateral leads. Troponins 0.02, 1.6, and 1.3. Previous cath report performed at 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 He is currently resting comfortably in bed at the time of my examination. He continues to have posterior neck discomfort, however denies any more chest pain. He also denies any shortness of breath, palpitations, dizziness, or lightheadedness. Past Medical History Past Medical History: Chest Pain / Angina, Diabetes Mellitus, Hyperlipidemia, Hypertension, Renal Disease History of Any Multi-Drug Resistant Organisms: None Reported Past Surgical History: Coronary Bypass/CABG Additional Past Surgical History / Comment(s): quad bypass, back surgery Past Psychological History: Depression Smoking Status: Former smoker Past Alcohol Use History: None Reported Past Drug Use History: None Reported Medications and Allergies Home Medications Medication Instructions Recorded Confirmed Type Aspirin EC [Ecotrin Low Dose] 81 mg PO DAILY 06/11/19 08/25/21 History Cyanocobalamin (Vitamin B-12) 2,000 mcg PO DAILY 06/11/19 08/25/21 History [Vitamin B-12] Isosorbide Mononitrate ER [Imdur] 60 mg PO DAILY 06/11/19 08/25/21 History Multivitamins, Thera [Multivitamin 1 tab PO DAILY 06/11/19 08/25/21 History (formulary)] glipiZIDE [Glucotrol] 5 mg PO DAILY 06/11/19 08/25/21 History Escitalopram [Lexapro] 20 mg PO DAILY 08/25/21 08/25/21 History Ferrous Sulfate [Iron (65 MG 325 mg PO BID 08/25/21 08/25/21 History Elemental)] Losartan/Hydrochlorothiazide 1 tab PO DAILY 08/25/21 08/25/21 History [Losartan-Hctz 100-12.5 mg Tab] Meloxicam 15 mg PO DAILY 08/25/21 08/25/21 History Metoprolol Tartrate [Lopressor] 25 mg PO BID 08/25/21 08/25/21 History Montelukast [Singulair] 10 mg PO HS 08/25/21 08/25/21 History Ranolazine [Ranexa] 500 mg PO BID 08/25/21 08/25/21 History Rosuvastatin Calcium [Crestor] 40 mg PO HS 08/25/21 08/25/21 History amLODIPine [Norvasc] 5 mg PO DAILY 08/25/21 08/25/21 History cycloSPORINE 0.05% OPHTH SOLN 1 drop BOTH EYES BID 08/25/21 08/25/21 History [Restasis] glipiZIDE [Glucotrol] 10 mg PO HS 08/25/21 08/25/21 History Allergies Allergy/AdvReac Type Severity Reaction Status Date / Time morphine Allergy Rash/Hives Verified 08/25/21 12:58 lorazepam [From Ativan] AdvReac Confusion, Verified 08/25/21 12:58 altered mental prednisone AdvReac cardiac Verified 08/25/21 12:59 issues Physical Exam Vitals: Vital Signs Temp Pulse Pulse Resp BP BP Pulse Ox 08/26/21 07:00 98.8 F 53 L 14 154/76 99 08/26/21 02:33 97.8 F 55 L 16 151/68 95 08/25/21 20:00 51 L 08/25/21 19:48 98.6 F 52 L 17 155/58 99 08/25/21 14:11 97.7 F 54 L 17 176/72 97 08/25/21 14:00 54 L 17 08/25/21 13:25 51 L 16 153/66 96 08/25/21 12:00 61 16 140/62 97 08/25/21 10:54 98.8 F 55 L 18 150/68 98 Intake and Output 08/25/21 08/26/21 08/26/21 22:59 06:59 14:59 Intake Total 236 Output Total 625 Balance -389 Intake: Oral 236 Output: Urine 625 Other: Voiding Method Toilet Toilet # Voids 1 1 Weight 104.326 kg Results 08/25/21 11:44 08/25/21 11:44 Cardiac Enzymes 08/25/21 08/25/21 08/25/21 Range/Units 11:44 11:44 16:16 AST 17 (17-59) U/L Troponin I <0.012 <0.012 (0.000-0.034) ng/mL 08/25/21 Range/Units 20:25 AST (17-59) U/L Troponin I 0.018 (0.000-0.034) ng/mL Coagulation 08/25/21 Range/Units 11:44 PT 10.3 (9.0-12.0) sec APTT 22.5 (22.0-30.0) sec CBC 08/25/21 Range/Units 11:44 WBC 8.6 (3.8-10.6) k/uL RBC 3.55 L (4.30-5.90) m/uL Hgb 10.4 L (13.0-17.5) gm/dL Hct 33.2 L (39.0-53.0) % Plt Count 224 (150-450) k/uL Comprehensive Metabolic Panel 08/25/21 Range/Units 11:44 Sodium 139 (137-145) mmol/L Potassium 4.2 (3.5-5.1) mmol/L Chloride 103 (98-107) mmol/L Carbon Dioxide 26 (22-30) mmol/L BUN 36 H (9-20) mg/dL Creatinine 1.70 H (0.66-1.25) mg/dL Glucose 184 H (74-99) mg/dL Calcium 9.0 (8.4-10.2) mg/dL AST 17 (17-59) U/L ALT 13 (4-49) U/L Alkaline Phosphatase 63 (38-126) U/L Total Protein 6.9 (6.3-8.2) g/dL Albumin 4.2 (3.5-5.0) g/dL Current Medications Generic Name Dose Route Start Last Admin Trade Name Freq PRN Reason Stop Dose Admin Acetaminophen 650 mg 08/25/21 12:56 Acetaminophen Tab 325 Mg Tab PO Q6HR PRN Mild Pain or Fever > 100.5 Amlodipine Besylate 5 mg 08/26/21 09:00 Amlodipine 5 Mg Tab PO DAILY [facility] Aspirin 81 mg 08/26/21 09:00 Aspirin 81 Mg PO DAILY [facility] Atorvastatin Calcium 80 mg 08/25/21 21:00 08/25/21 20:03 Atorvastatin 80 Mg Tab PO 80 mg HS JAMESON Administration Cyclosporine 1 drops 08/25/21 21:00 08/25/21 20:03 Cyclosporine 0.05% Ophth 0.4 Ml Droperette BOTH EYES 1 drops BID JAMESON Administration Glipizide 5 mg 08/26/21 07:30 Glipizide 5 Mg Tab PO AC-BRKFST JAMESON Glipizide 10 mg 08/25/21 21:00 08/25/21 20:02 Glipizide 10 Mg Tab PO 10 mg HS JAMESON Administration Heparin Sodium (Porcine) 5,000 unit 08/25/21 16:00 08/25/21 23:43 Heparin Sodium,Porcine/Pf 5,000 Unit/0.5 Ml Syringe SQ Not Given Q8HR JAMESON Hydrochlorothiazide 12.5 mg 08/26/21 09:00 Hydrochlorothiazide 12.5 Mg Cap PO DAILY JAMESON Isosorbide Mononitrate 60 mg 08/26/21 09:00 Isosorbide Mononitrate Er 60 Mg Tab.Er.24h PO DAILY [facility] Losartan Potassium 100 mg 08/26/21 09:00 Losartan 50 Mg Tab PO DAILY JAMESON Metoprolol Tartrate 25 mg 08/25/21 21:00 08/25/21 20:03 Metoprolol Tartrate 25 Mg Tab PO 25 mg BID AJMESON Administration Montelukast Sodium 10 mg 08/25/21 21:00 08/25/21 20:03 Montelukast 10 Mg Tab PO 10 mg HS JAMESON Administration Naloxone HCl 0.2 mg 08/25/21 12:56 Naloxone 0.4 Mg/Ml 1 Ml Vial IV Q2M PRN Opioid Reversal Ranolazine 500 mg 08/25/21 21:00 08/25/21 20:02 Ranolazine 500 Mg Tab.Er.12h PO 500 mg BID JAMESON Administration Intake and Output 08/25/21 08/26/21 08/26/21 22:59 06:59 14:59 Intake Total 236 Output Total 625 Balance -389 Intake: Oral 236 Output: Urine 625 Other: Voiding Method Toilet Toilet # Voids 1 1 Weight 104.326 kg 08/25/21 11:44 08/25/21 11:44
[2021-08-26 16:35] LABS: Glucose,Whole Blood 155 mg/dL (75-99)
--- NOTE | 2021-08-26 17:27 | P.HPIM ---
History of Present Illness H&P Date: 08/25/21 Chief Complaint: Chest pain 81-year-old male with past medical history remarkable for cardiac disease including quadruple bypass, hypertension, hyperlipidemia, diabetes who is transferred from an outside hospital for cardiology evaluation. 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 Patient does receive care through cardiology here. Patient sees Dr. Barrera. Therefore patient was transferred here. Patient originally presented to the outside hospital yesterday morning. He was having 2 day history of intermittent chest pain with associated shortness of breath. It is all since passed. Cardiac workup at the outside hospital showed to determine troponins as well as a normal EKG. He received aspirin there. He currently has no acute complaints. No fevers, chills, sick contacts. Denies any current chest pain. States the chest pain over the last 2 days occurred because he was climbing stairs helping family members move. Presents for cardiac evaluation. Workup completed in ED reveals a WBC of 8.6, hemoglobin of 10.4, platelet count of 224, sodium 139, potassium 4.2, BUN/creatinine of 36/1.7 and blood glucose of 184 EKG reveals no signs of acute ischemia Review of Systems REVIEW OF SYSTEMS: CONSTITUTIONAL: No fever, no malaise, no fatigue. HEENT: No recent visual problems or hearing problems. Denied any sore throat. CARDIOVASCULAR: No chest pain, orthopnea, PND, no palpitations, no syncope. PULMONARY: No shortness of breath, no cough, no hemoptysis. GASTROINTESTINAL: No diarrhea, no nausea, no vomiting, no abdominal pain. NEUROLOGICAL: No headaches, no weakness, no numbness. HEMATOLOGICAL: Denies any bleeding or petechiae. GENITOURINARY: Denies any burning micturition, frequency, or urgency. MUSCULOSKELETAL/RHEUMATOLOGICAL: Denies any joint pain, swelling, or any muscle pain. ENDOCRINE: Denies any polyuria or polydipsia. The rest of the 14-point review of systems is negative. Past Medical History Past Medical History: Chest Pain / Angina, Diabetes Mellitus, Hyperlipidemia, Hypertension, Renal Disease History of Any Multi-Drug Resistant Organisms: None Reported Past Surgical History: Coronary Bypass/CABG Additional Past Surgical History / Comment(s): quad bypass Past Psychological History: Depression Smoking Status: Former smoker Past Alcohol Use History: None Reported Past Drug Use History: None Reported Medications and Allergies Home Medications Medication Instructions Recorded Confirmed Type Aspirin EC [Ecotrin Low Dose] 81 mg PO DAILY 06/11/19 08/25/21 History Cyanocobalamin (Vitamin B-12) 2,000 mcg PO DAILY 06/11/19 08/25/21 History [Vitamin B-12] Isosorbide Mononitrate ER [Imdur] 60 mg PO DAILY 06/11/19 08/25/21 History Multivitamins, Thera [Multivitamin 1 tab PO DAILY 06/11/19 08/25/21 History (formulary)] glipiZIDE [Glucotrol] 5 mg PO DAILY 06/11/19 08/25/21 History Escitalopram [Lexapro] 20 mg PO DAILY 08/25/21 08/25/21 History Ferrous Sulfate [Iron (65 MG 325 mg PO BID 08/25/21 08/25/21 History Elemental)] Losartan/Hydrochlorothiazide 1 tab PO DAILY 08/25/21 08/25/21 History [Losartan-Hctz 100-12.5 mg Tab] Meloxicam 15 mg PO DAILY 08/25/21 08/25/21 History Metoprolol Tartrate [Lopressor] 25 mg PO BID 08/25/21 08/25/21 History Montelukast [Singulair] 10 mg PO HS 08/25/21 08/25/21 History Ranolazine [Ranexa] 500 mg PO BID 08/25/21 08/25/21 History Rosuvastatin Calcium [Crestor] 40 mg PO HS 08/25/21 08/25/21 History amLODIPine [Norvasc] 5 mg PO DAILY 08/25/21 08/25/21 History cycloSPORINE 0.05% OPHTH SOLN 1 drop BOTH EYES BID 08/25/21 08/25/21 History [Restasis] glipiZIDE [Glucotrol] 10 mg PO HS 08/25/21 08/25/21 History Allergies Allergy/AdvReac Type Severity Reaction Status Date / Time morphine Allergy Rash/Hives Verified 08/25/21 12:58 lorazepam [From Ativan] AdvReac Confusion, Verified 08/25/21 12:58 altered mental prednisone AdvReac cardiac Verified 08/25/21 12:59 issues Physical Exam Vitals: Vital Signs Temp Pulse Pulse Resp BP BP Pulse Ox 08/25/21 14:11 97.7 F 54 L 17 176/72 97 08/25/21 13:25 51 L 16 153/66 96 08/25/21 12:00 61 16 140/62 97 08/25/21 10:54 98.8 F 55 L 18 150/68 98 Intake and Output 08/25/21 08/25/21 08/25/21 06:59 14:59 22:59 Intake Total 118 Balance 118 Intake: Oral 118 Other: Weight 104.326 kg - Constitutional General appearance: Present: average body habitus, cooperative, no acute distress - EENT Eyes: Present: anicteric sclerae, EOMI, PERRLA, normal appearance ENT: Present: hearing grossly normal, normal oropharynx Ears: bilateral: normal - Neck Neck: Present: normal ROM. Absent: lymphadenopathy, rigidity, thyromegaly Carotids: negative: bruit present Thyroid: bilateral: normal size, negative: enlarged, nodule - Respiratory Respiratory: bilateral: CTA, negative: rales, rhonchi, wheezing - Cardiovascular Rhythm: regular Heart sounds: normal: S1, S2 Abnormal Heart Sounds: Absent: systolic murmur, diastolic murmur - Gastrointestinal General gastrointestinal: Present: normal bowel sounds, soft. Absent: distended, organomegaly, tenderness - Genitourinary Genitourinary Comment(s): deferred - Integumentary Integumentary: Present: normal turgor. Absent: jaundiced, rash, ulcer - Neurologic Neurologic: Present: CNII-XII intact. Absent: focal deficits - Musculoskeletal Musculoskeletal: Present: gait normal, strength equal bilaterally - Psychiatric Psychiatric: Present: A&O x's 3, appropriate affect, intact judgment & insight Results CBC & Chem 7: 08/25/21 11:44 08/25/21 11:44 Labs: Abnormal Lab Results - Last 24 Hours (Table) 08/25/21 08/25/21 08/25/21 Range/Units 11:44 11:44 13:59 RBC 3.55 L (4.30-5.90) m/uL Hgb 10.4 L (13.0-17.5) gm/dL Hct 33.2 L (39.0-53.0) % BUN 36 H (9-20) mg/dL Creatinine 1.70 H (0.66-1.25) mg/dL Glucose 184 H (74-99) mg/dL POC Glucose (mg/dL) 159 H (75-99) mg/dL Assessment and Plan Assessment: 1. Chest pain rule out acute coronary syndrome - We will monitor EKG and trend troponin; continue with aspirin, Lopressor 25 mg twice a day, Imdur 60 mg daily - Continue with home dose of Ranexa 500 mg twice a day - Consult cardiology for further recommendations 2. Hypertension; stable on home dose of losartan/HCTZ, Lopressor, amlodipine 5 mg daily and Imdur 3. Hyperlipidemia; Crestor 40 mg by mouth daily at bedtime 4. Diabetes mellitus type 2; continue with home dose of Glucotrol; monitor Accu-Cheks every before meals and at bedtime with insulin sliding scale 5. Asthma; not in exacerbation; Singulair 10 mg daily 6. Depression/anxiety; Lexapro 20 mg daily DVT prophylaxis; SCDs CODE STATUS; full code
--- NOTE | 2021-08-26 17:30 | P.PN ---
Subjective Progress Note Date: 08/26/21 Principal diagnosis: Chest pain/unstable angina 81-year-old male with past medical history remarkable for cardiac disease including quadruple bypass, hypertension, hyperlipidemia, diabetes who is transferred from an outside hospital for cardiology evaluation. 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 Patient does receive care through cardiology here. Patient sees Dr. Barrera. Therefore patient was transferred here. Patient originally presented to the outside hospital yesterday morning. He was having 2 day history of intermittent chest pain with associated shortness of breath. It is all since passed. Cardiac workup at the outside hospital showed to determine troponins as well as a normal EKG. He received aspirin there. He currently has no acute complaints. No fevers, chills, sick contacts. Denies any current chest pain. States the chest pain over the last 2 days occurred because he was climbing stairs helping family members move. Presents for cardiac evaluation. Workup completed in ED reveals a WBC of 8.6, hemoglobin of 10.4, platelet count of 224, sodium 139, potassium 4.2, BUN/creatinine of 36/1.7 and blood glucose of 184 EKG reveals no signs of acute ischemia Patient has been evaluated by cardiology and is tentatively scheduled for Luxiq and stress test tomorrow morning; patient will be reevaluated by Dr. Barrera will make final determination whether patient undergoes stress test versus cardiac catheterization 2-D echo is ordered and pending; cardiology recommending to increase Imdur up to 90 mg daily Objective - Vital Signs Vital signs: Vital Signs Temp 98.8 F 08/26/21 07:00 Pulse 53 L 08/26/21 08:00 Resp 14 08/26/21 08:00 BP 154/76 08/26/21 07:00 Pulse Ox 99 08/26/21 07:00 Intake & Output 08/25/21 08/26/21 08/26/21 18:59 06:59 18:59 Intake Total 236 Output Total 625 Balance -389 Weight 104.326 kg Intake: Oral 236 Output: Urine 625 Other: Voiding Method Toilet Toilet Toilet # Voids 1 1 - Exam - Constitutional General appearance: Present: average body habitus, cooperative, no acute distress - EENT Eyes: Present: anicteric sclerae, EOMI, PERRLA, normal appearance ENT: Present: hearing grossly normal, normal oropharynx Ears: bilateral: normal - Neck Neck: Present: normal ROM. Absent: lymphadenopathy, rigidity, thyromegaly Carotids: negative: bruit present Thyroid: bilateral: normal size, negative: enlarged, nodule - Respiratory Respiratory: bilateral: CTA, negative: rales, rhonchi, wheezing - Cardiovascular Rhythm: regular Heart sounds: normal: S1, S2 Abnormal Heart Sounds: Absent: systolic murmur, diastolic murmur - Gastrointestinal General gastrointestinal: Present: normal bowel sounds, soft. Absent: distended, organomegaly, tenderness - Genitourinary Genitourinary Comment(s): deferred - Integumentary Integumentary: Present: normal turgor. Absent: jaundiced, rash, ulcer - Neurologic Neurologic: Present: CNII-XII intact. Absent: focal deficits - Musculoskeletal Musculoskeletal: Present: gait normal, strength equal bilaterally - Psychiatric Psychiatric: Present: A&O x's 3, appropriate affect, intact judgment & insight - Labs CBC & Chem 7: 08/25/21 11:44 08/25/21 11:44 Labs: Abnormal Lab Results - Last 24 Hours (Table) 08/25/21 08/25/21 08/25/21 Range/Units 13:59 16:43 20:54 POC Glucose (mg/dL) 159 H 214 H 138 H (75-99) mg/dL 08/26/21 08/26/21 Range/Units 06:55 12:07 POC Glucose (mg/dL) 128 H 188 H (75-99) mg/dL Assessment and Plan Assessment: 1. Chest pain rule out acute coronary syndrome - We will monitor EKG and trend troponin; continue with aspirin, Lopressor 25 mg twice a day, Imdur 60 mg daily - Continue with home dose of Ranexa 500 mg twice a day - Consult cardiology for further recommendations 2. Hypertension; stable on home dose of losartan/HCTZ, Lopressor, amlodipine 5 mg daily and Imdur 3. Hyperlipidemia; Crestor 40 mg by mouth daily at bedtime 4. Diabetes mellitus type 2; continue with home dose of Glucotrol; monitor Accu-Cheks every before meals and at bedtime with insulin sliding scale 5. Asthma; not in exacerbation; Singulair 10 mg daily 6. Depression/anxiety; Lexapro 20 mg daily DVT prophylaxis; SCDs CODE STATUS; full code
[2021-08-26] MEDS: MONTELUKAST 10 MG TAB PO SCH (20:59)
[2021-08-26] MEDS: ATORVASTATIN 80 MG TAB PO SCH (20:59)
[2021-08-26] MEDS: glipiZIDE 10 MG TAB PO SCH (20:59)
[2021-08-26 21:14] LABS: Glucose,Whole Blood 188 mg/dL (75-99)
[2021-08-27] MEDS ORDERED: AMINOPHYLLINE 500 MG/20 ML VIAL IV PRN ×2 (07:00→09:17)
[2021-08-27] MEDS ORDERED: CAFFEINE CITRATE 60 MG/3 ML VIAL IV PRN ×2 (07:00→09:17)
[2021-08-27] MEDS ORDERED: REGADENOSON 0.4 MG/5 ML SYRINGE IV PRN ×2 (07:00→09:17)
[2021-08-27] MEDS: cycloSPORINE 0.05% OPHTH 0.4 ML DROPERETTE BOTH EYES SCH (07:51)
[2021-08-27] MEDS: hydroCHLOROthiazide 12.5 MG CAP PO SCH (07:51)
[2021-08-27] MEDS: amLODIPine 5 MG TAB PO SCH (07:52)
[2021-08-27] MEDS: HEPARIN SODIUM,PORCINE/PF 5,000 UNIT/0.5 ML SYRINGE SQ SCH (07:52)
[2021-08-27] MEDS: RANOLAZINE 500 MG TAB.ER.12H PO SCH (07:52)
[2021-08-27] MEDS: ASPIRIN 81 MG PO SCH (07:52)
[2021-08-27 07:56] LABS: Glucose,Whole Blood 150 mg/dL (75-99)
[2021-08-27] MEDS: LOSARTAN 50 MG TAB PO SCH (07:59)
[2021-08-27 09:10] LABS: Basophils # (A) 0.07 X 10*3/uL (0.00-0.10); Basophils % (A) 0.8 %; Eosinophils % (A) 3.6 %; HCT 35.6 % (39.6-50.0); Immature Grans, Automated 1.8 %; Lymphocytes % (A) 15.4 %; MCH 28.9 pg (27.0-32.0); MCHC 30.9 g/dL (32.0-37.0); MCV 93.4 fL (80.0-97.0); Mean Platelet Volume 10.6 fL (9.5-12.2); Monocytes % (A) 10.7 %; NRBC Per 100 WBC 0 /100 WBCS (0.0-0.0); Neutrophils # (A) 5.73 X 10*3/uL (1.80-7.70); Neutrophils % (A) 67.7 %; Platelet Count 239 X 10*3/uL (140-440); RBC 3.81 X 10*6/uL (4.40-5.60); RDW 15.5 % (11.5-14.5); WBC 8.45 X 10*3/uL (4.50-10.00)
[2021-08-27 09:33] LABS: African American GFR (CKD) 37.7 (60.0-200.0); Anion Gap 12.4 mmol/L (10.00-18.00); BUN/Creat Ratio 20.11 Ratio (12.00-20.00); Blood Urea Nitrogen 38.2 mg/dL (9.0-27.0); Calcium 9.2 mg/dL (8.7-10.3); Carbon Dioxide 20.6 mmol/L (20.0-27.5); Non-African American GFR(CKD) 32.6 (60.0-200.0); Potassium 4.7 mmol/L (3.5-5.5)
--- NOTE | 2021-08-27 10:59 | P.PN ---
Subjective Progress Note Date: 08/27/21 HISTORY OF PRESENT ILLNESS: This is an 81-year-old male patient of Dr. Barrera with past medical history of coronary artery disease with previous CABG 4 vessel in 2008, non-ST elevated myocardial infarction in May 2019, hypertension, hyperlipidemia, diabetes mellitus type 2, diabetic neuropathy, chronic kidney disease stage III. Patient was last hospitalized in May 2019 at which time he was treated for non-ST elevated myocardial infarction. Cardiac catheterization revealed severe triple vessel coronary artery disease with chronically occluded left circumflex, distal right coronary artery and subtotally occluded LAD. Patent RUIZ to LAD. Patent radial bypass to the diagonal branch. Patent saphenous vein graft to the PDA with 20-30% plaque throughout the graft. Collaterals to the circumflex obtuse marginal branch from the right coronary artery. Recommendations at that time was for aggressive medical management. Echocardiogram at that time revealed EF of 50-55%, trace to mild mitral regurgitation, trace tricuspid regurgitation. Patient has had episodes of bilateral shoulder pain and neck pain with exertion. He states it usually lasts about 10 minutes and leads on its own when he sits down. He also has some sweating sometimes. He denies having any chest pain. He states that on his previous [place] he had shoulder pain as well. He also gives history of having steroids oral started last week for hip pain by PCP. He has been taking all of his medications as directed. EKG sinus bradycardia Troponin negative on 3 draws. ProBNP 734. Hemoglobin 10.4. BUN 36 and creatinine 1.7 Chest x-ray reveals no acute pulmonary disease. Home cardiac medications: Norvasc 5 mg daily, aspirin 81 mg daily Imdur 60 mg daily, losartan/hydrochlorothiazide 28996 0.5 mg daily, Lopressor 25 mg twice daily, Ranexa 500 mg twice daily, Crestor 40 mg at bedtime 08/27/2021 Patient examined this morning at the bedside. Patient denies chest pain or pressure. He denies shortness of breath. Vital signs are stable. Echocardiogram completed and results are currently pending. PHYSICAL EXAM: VITAL SIGNS: Reviewed. GENERAL: Well-developed in no acute distress. NECK: Supple. No JVD or thyromegaly LUNGS: Respirations even and unlabored. Lungs essentially clear to auscultation bilaterally. HEART: Regular rate and rhythm. S1 and S2 heard. EXTREMITIES: Normal range of motion. No clubbing or cyanosis. Peripheral pulses intact. No lower extremity edema ASSESSMENT: Acute coronary syndrome ruled out Bilateral shoulder and neck pain with exertion concerning for etiology of coronary artery disease with history of severe triple vessel disease on last cardiac catheterization 05/2019 Coronary artery disease status post 4 vessel CABG Non-ST elevated myocardial infarction in May 2019 Hypertension Hyperlipidemia Diabetes mellitus type 2 Chronic kidney disease stage III PLAN: Continue current cardiac medications 2D echo ordered. Await results. Patient to undergo Lexiscan today. If negative, he may be discharged home from a cardiac standpoint Nurse practitioner note has been reviewed by physician. Signing provider agrees with the documented findings, assessment, and plan of care. Objective - Vital Signs Vital signs: Vital Signs Temp 98.2 F 08/27/21 07:00 Pulse 68 08/27/21 07:00 Resp 20 08/27/21 07:00 BP 156/62 08/27/21 07:00 Pulse Ox 98 08/27/21 07:00 Intake & Output 08/26/21 08/27/21 08/27/21 18:59 06:59 18:59 Intake Total 236 Balance 236 Intake: Oral 236 Other: Voiding Method Toilet Toilet # Voids 2 1 - Labs CBC & Chem 7: 08/27/21 06:23 08/27/21 06:23 Labs: Abnormal Lab Results - Last 24 Hours (Table) 08/26/21 08/26/21 08/26/21 Range/Units 12:07 16:33 21:12 RBC (4.40-5.60) X 10*6/uL Hgb (13.0-17.0) g/dL Hct (39.6-50.0) % MCHC (32.0-37.0) g/dL RDW (11.5-14.5) % Immature Gran # (0.00-0.04) X 10*3/uL BUN (9.0-27.0) mg/dL Creatinine (0.6-1.5) mg/dL Est GFR (CKD-EPI)AfAm (60.0-200.0) Est GFR (CKD-EPI)NonAf (60.0-200.0) BUN/Creatinine Ratio (12.00-20.00) Ratio Glucose (70-110) mg/dL POC Glucose (mg/dL) 188 H 155 H 188 H (75-99) mg/dL 08/27/21 08/27/21 08/27/21 Range/Units 06:23 06:23 07:42 RBC 3.81 L (4.40-5.60) X 10*6/uL Hgb 11.0 L (13.0-17.0) g/dL Hct 35.6 L (39.6-50.0) % MCHC 30.9 L (32.0-37.0) g/dL RDW 15.5 H (11.5-14.5) % Immature Gran # 0.15 H (0.00-0.04) X 10*3/uL BUN 38.2 H (9.0-27.0) mg/dL Creatinine 1.9 H (0.6-1.5) mg/dL Est GFR (CKD-EPI)AfAm 37.7 L (60.0-200.0) Est GFR (CKD-EPI)NonAf 32.6 L (60.0-200.0) BUN/Creatinine Ratio 20.11 H (12.00-20.00) Ratio Glucose 153 H (70-110) mg/dL POC Glucose (mg/dL) 150 H (75-99) mg/dL
--- NOTE | 2021-08-27 12:27 | P.STRESS ---
- Stress Test Note Stress Test Results/Findings: Exam Performed: NM stress lexiscan cardiolite Exam Date: 08/27/21 Reason for Exam: Chest Pain Height: 5 ft 8 in Weight: 104.33 kg Protocol: Lexiscan Stage: na Duration of Exercise: na Resting Heart Rate: 58 Resting Blood Pressure: 123/60 Maximum Achieved Heart Rate: 101 Maximum Achieved Blood Pressure: 160/60 85% PMHR: 119 100% PMHR: 140 METS: na Technologist Comment: Stress Test Results/Findings: At baseline EKG showed normal sinus rhythm, normal axis, minimal upsloping 0.[address] depressions in V2 through V6. Patient recieved IV infusion of Lexiscan 0.4mg and at peak infusion EKG showed no significant change from baseline. Conclusions: 1. Nondiagnostic EKG portion secondary to baseline EKG abnormalities. 2. Nuclear imaging to be reported separately.
[2021-08-27 12:28] LABS: Glucose,Whole Blood 118 mg/dL (75-99)
--- NOTE | 2021-08-27 13:28 | NM ---
EXAMINATION TYPE: NM stress lexiscan cardiolite DATE OF EXAM: 08/27/2021 COMPARISON: NONE HISTORY: Chest pain TECHNIQUE: After the intravenous administration of 10.2 mCi Tc 99m Sestamibi - Cardiolite resting SP ECT images acquired 65 minutes post injection. The patient received 0.4mg Lexiscan, 25.4 mCi Tc 99m Sestamibi - Stress images obtained [address] injection FINDINGS: Review of stress and rest SPECT images demonstrates no distinct perfusion abnormality. Gated analysi s shows normal wall motion with an estimated left ventricular ejection fraction of 47 %. IMPRESSION: No scintigraphic evidence for reversible ischemia.
[2021-08-27 15:37] VITALS: BP 136/78; PULSE 73; RESP 19; TEMP 98
--- NOTE | 2021-08-29 11:46 | ECHOS ---
Stress Test Results/Findings: Exam Performed: NM stress lexiscan cardiolite Exam Date: 08/27/21 Reason for Exam: Chest Pain Height: 5 ft 8 in Weight: 104.33 kg Protocol: Lexiscan Stage: na Duration of Exercise: na Resting Heart Rate: 58 Resting Blood Pressure: 123/60 Maximum Achieved Heart Rate: 101 Maximum Achieved Blood Pressure: 160/60 85% PMHR: 119 100% PMHR: 140 METS: na Technologist Comment: Stress Test Results/Findings: At baseline EKG showed normal sinus rhythm, normal axis, minimal upsloping 0.[address] depressions in V2 through V6. Patient received IV infusion of Lexiscan 0.4mg and at peak infusion EKG showed no significant change from baseline. Conclusions: 1. Nondiagnostic EKG portion secondary to baseline EKG abnormalities. 2. Nuclear imaging to be reported separately. MTDD
--- NOTE | 2021-09-04 16:36 | ECHOF ---
Referral Reason:chest pain MEASUREMENTS -------- HEIGHT: 172.7 cm WEIGHT: 104.3 kg BP: 140/62 RVIDd: 2.6 cm (< 3.3) IVSd: 1.4 cm (0.6 - 1.1) LVIDd: 5.2 cm (3.9 - 5.3) LVPWd: 1.3 cm (0.6 - 1.1) IVSs: 2.1 cm LVIDs: 3.4 cm LVPWs: 2.2 cm LA Diam: 3.6 cm (2.7 - 3.8) Ao Diam: 3.8 cm (2.0 - 3.7) AV Cusp: 1.9 cm (1.5 - 2.6) MV EXCURSION: 17.570 mm (> 18.000) MV EF SLOPE: 54 mm/s (70 - 150) EPSS: 1.0 cm MV E Matthew: 1.16 m/s MV DecT: 214 ms MV A Matthew: 0.88 m/s MV E/A Ratio: 1.32 AV maxP.72 mmHg AV meanP.14 mmHg RAP: 5.00 mmHg RVSP: 34.51 mmHg FINDINGS -------- Sinus rhythm. This was a technically difficult study with suboptimal apical views. The left ventricular size is normal. There is moderate concentric left ventricular hypertrophy. O verall left ventricular systolic function is normal with, an EF between 55 - 60 %. The right ventricle is normal in size. The left atrium is normal in size. The right atrium is normal in size. 3 ml of Lumason was utilized for enhancement of images. There is mild aortic valve sclerosis. There is mild aortic stenosis present. Peak/mean gradient a cross the Aortic Valve is 20.72mmHg / 9.14mmHg. Mild mitral annular calcification present. Mild tricuspid regurgitation present. There is mild pulmonary hypertension. The right ventricular systolic pressure, as measured by Doppler, is 34.51mmHg. The aortic root is dilated measuring 3.8cm. IVC Not well visulized. There is no pericardial effusion. CONCLUSIONS -------- 1. The left ventricular size is normal. 2. There is moderate concentric left ventricular hypertrophy. 3. Overall left ventricular systolic function is normal with, an EF between 55 - 60 %. 4. 3 ml of Lumason was utilized for enhancement of images. 5. There is mild aortic valve sclerosis. 6. There is mild aortic stenosis present. 7. Peak/mean gradient across the Aortic Valve is 20.72mmHg / 9.14mmHg. 8. Mild mitral annular calcification present. 9. Mild tricuspid regurgitation present. 10. There is mild pulmonary hypertension. 11. The right ventricular systolic pressure, as measured by Doppler, is 34.51mmHg. 12. The aortic root is dilated measuring 3.8cm. 13. There is no pericardial effusion. FLY FINISHER: Lisa Lynch RDCS
== END 2021-08-27 15:57 | disposition home or self-care (01) ==
LOC: EC 10:52 → 6NMEDSUR 12:56 → OBSVTOIN 08-27 13:10 → INTOOBSV 08-27 13:10 → UNDODISIN 08-27 15:57
PROVIDERS: ADMIT Family Medicine; ATTEND Family Medicine
DX: R07.89 Other chest pain (principal); R06.02 Shortness of breath; I12.9 Hypertensive chronic kidney disease with stage 1 through stage 4 chronic kidney disease, or unspecified chronic kidney disease; E11.22 Type 2 diabetes mellitus with diabetic chronic kidney disease; N18.30 Chronic kidney disease, stage 3 unspecified; G89.29 Other chronic pain; M54.2 Cervicalgia; E78.5 Hyperlipidemia, unspecified; E11.40 Type 2 diabetes mellitus with diabetic neuropathy, unspecified; J45.909 Unspecified asthma, uncomplicated; F32.A Depression, unspecified; F41.9 Anxiety disorder, unspecified; M25.512 Pain in left shoulder; M25.511 Pain in right shoulder; I08.3 Combined rheumatic disorders of mitral, aortic and tricuspid valves; R94.31 Abnormal electrocardiogram [ECG] [EKG]; R00.1 Bradycardia, unspecified; I25.10 Atherosclerotic heart disease of native coronary artery without angina pectoris; I25.2 Old myocardial infarction; Z95.1 Presence of aortocoronary bypass graft; N28.9 Disorder of kidney and ureter, unspecified; Z87.891 Personal history of nicotine dependence; Z79.82 Long term (current) use of aspirin; Z79.899 Other long term (current) drug therapy; Z79.1 Long term (current) use of non-steroidal anti-inflammatories (NSAID); Z79.84 Long term (current) use of oral hypoglycemic drugs; Z88.5 Allergy status to narcotic agent; Z88.8 Allergy status to other drugs, medicaments and biological substances
CPT/HCPCS: 96372 ×3; 99285; 36415; 93005; 93017; 83880; 80053; 80048; 83735; 84484; 85025 ×2; 85610; 85730; 71045; 78452; G0378 ×3; C8929; A9500; J2785; J1644 ×3; 93306

== ENCOUNTER → 2021-10-29 | Outpatient (CLI) | payer MEDICARE ==
[2021-10-29 18:12] LABS: ALT 10 U/L (10-49); AST 10 U/L (14-35); African American GFR (CKD) 35.5 (60.0-200.0); Albumin 4.4 g/dL (3.8-4.9); Albumin/Globulin Ratio 2.12 (1.60-3.17); Alkaline Phosphatase 70 U/L (41-126); BUN/Creat Ratio 16.95 Ratio (12.00-20.00); Blood Urea Nitrogen 33.9 mg/dL (9.0-27.0); Calcium 9.3 mg/dL (8.7-10.3); Carbon Dioxide 22.2 mmol/L (20.0-27.5); Chloride 104 mmol/L (96-109); Chol/HDL Ratio 2.98 Ratio; Globulin 2.1 g/dL (1.6-3.3); Glucose 157 mg/dL (70-110); LDL Cholesterol,Calculated 58.2 mg/dL (0.0-131.0); Non-African American GFR(CKD) 30.6 (60.0-200.0); Potassium 5.2 mmol/L (3.5-5.5); Sodium 140 mmol/L (135-145); Total Protein 6.5 g/dL (6.2-8.2)
== END | disposition home or self-care (01) ==
LOC: LABWHC1 10:26
PROVIDERS: ATTEND Nurse Practitioner Adult Health
DX: E11.65 Type 2 diabetes mellitus with hyperglycemia (principal); E78.2 Mixed hyperlipidemia; N18.9 Chronic kidney disease, unspecified
CPT/HCPCS: 36415; 80053; 80061

== ENCOUNTER → 2022-09-27 | Outpatient (CLI) | payer MEDICARE ==
[2022-09-27 15:12] LABS: ALT 13 U/L (10-49); AST 14 U/L (14-35); African American GFR (CKD) 37.5 (60.0-200.0); Albumin 4.4 g/dL (3.8-4.9); Albumin/Globulin Ratio 1.83 (1.60-3.17); Alkaline Phosphatase 86 U/L (41-126); BUN/Creat Ratio 16.21 Ratio (12.00-20.00); Blood Urea Nitrogen 30.8 mg/dL (9.0-27.0); Calcium 9.4 mg/dL (8.7-10.3); Carbon Dioxide 21.7 mmol/L (20.0-27.5); Chloride 103 mmol/L (96-109); Chol/HDL Ratio 3.52 Ratio; Globulin 2.4 g/dL (1.6-3.3); Glucose 211 mg/dL (70-110); Non-African American GFR(CKD) 32.3 (60.0-200.0); Sodium 137 mmol/L (135-145); Total Protein 6.8 g/dL (6.2-8.2); VLDL Calculation 17.52 mg/dL (5.00-40.00)
== END | disposition home or self-care (01) ==
LOC: LABWHC1 09:31
PROVIDERS: ATTEND Internal Medicine Interventional Cardiology
DX: E78.2 Mixed hyperlipidemia (principal)
CPT/HCPCS: 36415; 80053; 80061

== ENCOUNTER → 2022-10-10 | Outpatient (CLI) | payer MEDICARE ==
--- NOTE | 2022-10-10 16:05 | FL ---
EXAMINATION TYPE: FL barium swallow DATE OF EXAM: 10/10/2022 CLINICAL INDICATION: 82-year-old male R13.10, dysphasia, choking on foods and sensation of getting st uck in the throat. COMPARISON: None Total Fluoroscopy Time: 2 minutes 2 seconds DOSE AREA PRODUCT (DAP) UGY*M,MGY*CM: 497.8 65 images obtained. FINDINGS: The swallowing mechanism is normal and hypopharyngeal anatomy is preserved. There is anterior endpla te spondylosis mid to lower cervical spine. This does not cause any significant impression onto the b ack wall of the hypopharynx or cervical esophagus. There is mild hypertrophy of the cricopharyngeus. The thoracic portion has a normal course and caliber. Only minimal tertiary peristaltic waves are not ed. The mucosa is normal and no persistent filling defect is encountered. There is a small sliding hiatal hernia noted and mild gastroesophageal reflux. IMPRESSION: 1. Mild CP muscle hypertrophy. 2. Small sliding hiatal hernia and mild gastroesophageal reflux. 3. Otherwise, unremarkable esophagram.
== END | disposition home or self-care (01) ==
LOC: RADUSWWP 11:01
PROVIDERS: ATTEND Family Medicine
DX: K44.9 Diaphragmatic hernia without obstruction or gangrene (principal); R13.10 Dysphagia, unspecified
CPT/HCPCS: 74220

== ENCOUNTER → 2023-04-19 | Outpatient (CLI) | payer MEDICARE ==
[2023-04-19 23:04] LABS: ALT 14 U/L (10-49); AST 14 U/L (14-35); Albumin 4.3 g/dL (3.8-4.9); Albumin/Globulin Ratio 1.87 Ratio (1.60-3.17); Alkaline Phosphatase 79 U/L (41-126); BUN/Creat Ratio 15.89 Ratio (12.00-20.00); Blood Urea Nitrogen 30.2 mg/dL (9.0-27.0); Calcium 9.6 mg/dL (8.7-10.3); Carbon Dioxide 24.9 mmol/L (21.6-31.8); Chloride 106 mmol/L (96-109); Globulin 2.3 g/dL (1.6-3.3); Glucose 137 mg/dL (70-110); Potassium 5.4 mmol/L (3.5-5.5); Sodium 141 mmol/L (135-145); Total Bilirubin 0.2 mg/dL (0.3-1.2); Total Protein 6.6 g/dL (6.2-8.2)
== END | disposition home or self-care (01) ==
LOC: LABWHC1 11:20
PROVIDERS: ATTEND Internal Medicine Interventional Cardiology
DX: E78.2 Mixed hyperlipidemia (principal)
CPT/HCPCS: 36415; 80053

== ENCOUNTER → 2023-08-14 | Outpatient (CLI) | payer MEDICARE ==
[2023-08-14 15:30] VITALS: BP 110/56; PULSE 43; RESP 16; TEMP 97.5
--- NOTE | 2023-08-14 15:58 | P.SLEEP ---
History of Present Illness DATE: 08/14/2023 CONSULTATION/NEW PATIENT EVALUATION HISTORY OF PRESENT ILLNESS/SLEEP-WAKE EVALUATION: 83-year-old gentleman had b een evaluated in the sleep center for obstructive sleep apnea hypopnea syndrome. Patient has history of obstructive sleep apnea for about 5 years, since that time he is on treatment with CPAP. Patient continues to use CPAP equipment every night. I checked CPAP unit. Range of the pressure 5-15, average 9.2. Usage is 28 out of 30 nights for more than 4 hours, average 9.6 hours per night. Leak is increased to 47 L/min. Apnea hypopnea index is 4.9, which is in normal range. SLEEP SCHEDULE: Usually sleep schedule from 10:30 PM to 9:30 AM. FALLING ASLEEP: Sometimes patient has difficulties with falling asleep. DURING SLEEP: While using CPAP equipment patient wakes up from sleep once or up to 2 times with nocturia. No complaints of snoring while patient using CPAP equipment. No history of hypnogogical hallucinations, sleep paralysis, or cataplexy. DURING THE DAY/WAKE STATE: During the day patient may feel some sleepiness [place] Sleepiness Scale slightly increased to 12. . Patient may take 1 nap afternoon. PAST MEDICAL HISTORY: Hypertension, coronary artery disease, depression, restless leg symptoms. PAST SURGICAL HISTORY: CABG, back surgery. MEDICATIONS: Please see below. SOCIAL HISTORY: Please see below. FAMILY HISTORY: Diabetes. REVIEW OF SYSTEMS: Occasional awakenings from sleep. Snoring without CPAP. No fevers. No double vision. No recent chest pain. No shortness of breath. No abdominal pain. No bleeding episodes. No blood in urine. No seizure episodes. PHYSICAL EXAMINATION: GENERAL: A pleasant patient without any distress. VITAL SIGNS: Please see below, BMI 35.2. HEENT: PERRLA, EOMI. Evaluation of oropharynx showed tongue protrudes midline, low position of soft palate Mallampati 4. NECK: Supple. No JVD. Thyroid is not palpable. . LUNGS: Clear to percussion and to auscultation. Good air exchange. No wheezing or rhonchi. HEART: S1, S2 regular. No murmurs, gallops or rubs. ABDOMEN: Soft and nontender. Bowel sounds are present. No organomegaly appreciated. EXTREMITIES: No clubbing or cyanosis. APPLICATION SERVICES MANAGER: Awake, alert, and oriented x3. Cranial nerves 2 to 7 intact. There is no fasciculation or atrophy noted. No focal deficits observed. ASSESSMENT: 1. Obstructive sleep apnea hypopnea syndrome for 5 years. Sleep study was done in another institution in [place]. Patient continued to receive his supplies from [facility]. I checked his CPAP unit. Patient demonstrated great compliance with treatment. Normal respiration according to reading from CPAP unit. Extremely low position of soft palate Mallampati 4, some sleepiness during the day with [place] Sleepiness Scale increased to 12. Obstructive sleep apnea hypopnea syndrome. 2. Obesity. 3. Hypertension. 4. Coronary artery disease, status post CABG in 2008. 5 history of depression. 6 . Restless leg syndrome. 7. Status post back surgery. PLAN: 1. Continue using CPAP equipment every night for the whole night. 2. I will maintain all necessary prescription for CPAP supplies. 3. Will get results of previous sleep studies. 4. No driving if patient feels any sleepiness. Patient is aware of civil and criminal liability for unsafe driving. 5. Sleep hygiene with regular sleep time for at least 7.5-8 hours. 6. Watching and losing weight. 7. Follow-up visit in 4 months. Thank you very much for referring this patient for consultation. Sincerely, Celio Fabian MD, PhD, FAASM. Diplomat of [place] [employer], Sleep Medicine Board by [place] [employer] [place] [employer] Shoulder Joiner of [facility] [place] Past Medical History Past Medical History: Chest Pain / Angina, Diabetes Mellitus, Hyperlipidemia, Hypertension, Renal Disease History of Any Multi-Drug Resistant Organisms: None Reported Past Surgical History: Coronary Bypass/CABG Additional Past Surgical History / Comment(s): quad bypass Past Anesthesia/Blood Transfusion Reactions: No Reported Reaction Past Psychological History: No Psychological Hx Reported, Depression Smoking Status: Former smoker Past Alcohol Use History: None Reported Past Drug Use History: None Reported - Past Family History Father History Unknown: Yes Mother Additional Family Medical History / Comment(s): heart problems Medications and Allergies Home Medications Medication Instructions Recorded Confirmed Type Aspirin EC [Ecotrin Low Dose] 81 mg PO DAILY 06/11/19 08/14/23 History Cyanocobalamin (Vitamin B-12) 2,000 mcg PO DAILY 06/11/19 08/14/23 History [Vitamin B-12] Isosorbide Mononitrate ER [Imdur] 60 mg PO DAILY 06/11/19 08/14/23 History Multivitamins, Thera [Multivitamin 1 tab PO DAILY 06/11/19 08/14/23 History (formulary)] Escitalopram [Lexapro] 20 mg PO DAILY 08/25/21 08/14/23 History Losartan/Hydrochlorothiazide 1 tab PO DAILY 08/25/21 08/14/23 History [Losartan-Hctz 100-12.5 mg Tab] Meloxicam 15 mg PO DAILY 08/25/21 08/14/23 History Metoprolol Tartrate [Lopressor] 25 mg PO BID 08/25/21 08/14/23 History Montelukast [Singulair] 10 mg PO HS 08/25/21 08/14/23 History Ranolazine [Ranexa] 500 mg PO BID 08/25/21 08/14/23 History Rosuvastatin Calcium [Crestor] 40 mg PO HS 08/25/21 08/14/23 History amLODIPine [Norvasc] 5 mg PO DAILY 08/25/21 08/14/23 History cycloSPORINE 0.05% OPHTH SOLN 1 drop BOTH EYES BID 08/25/21 08/14/23 History [Restasis] Acetaminophen [Tylenol] 325 mg PO 08/14/23 History Cholecalciferol [Vitamin D3 (10 08/14/23 History Mcg = 400 Iu)] buPROPion XL [Wellbutrin XL] 150 mg PO DAILY 08/14/23 08/14/23 History traMADol HCL 50 mg PO Q6H 08/14/23 08/14/23 History Allergies Allergy/AdvReac Type Severity Reaction Status Date / Time morphine Allergy Rash/Hives Verified 08/25/21 12:58 lorazepam [From Ativan] AdvReac Confusion, Verified 08/25/21 12:58 altered mental prednisone AdvReac cardiac Verified 08/25/21 12:59 issues Physical Exam Vitals: Vital Signs Temp Pulse Resp BP Pulse Ox 08/14/23 15:26 97.5 F L 43 L 16 110/56 97 Intake and Output 08/14/23 08/14/23 08/14/23 06:59 14:59 22:59 Other: Weight 100.698 kg Sleep Note - Sleep Data ESS Total: 12 - Sleep Note Sleep Note: Temperature: 97.5 F Pulse Rate: 43 Respiratory Rate: 16 Blood Pressure: 110/56 SpO2: 97 Height: 5 ft 6.5 in Weight: 100.698 kg BMI: Neck Circumference: 20
== END ==
LOC: 3 N SLEEP 13:58
PROVIDERS: ATTEND Internal Medicine
DX: G47.33 Obstructive sleep apnea (adult) (pediatric) (principal); E66.9 Obesity, unspecified; I10 Essential (primary) hypertension; I25.10 Atherosclerotic heart disease of native coronary artery without angina pectoris; F32.A Depression, unspecified; G25.81 Restless legs syndrome; Z99.89 Dependence on other enabling machines and devices; Z95.1 Presence of aortocoronary bypass graft; Z88.5 Allergy status to narcotic agent; Z88.1 Allergy status to other antibiotic agents; Z79.82 Long term (current) use of aspirin; Z87.891 Personal history of nicotine dependence
CPT/HCPCS: 99211

== ENCOUNTER → 2023-11-25 | Outpatient (CLI) | payer MEDICARE ==
--- NOTE | 2023-11-25 21:42 | MR ---
EXAMINATION TYPE: MR brain wo con DATE OF EXAM: 11/25/2023 4:43 PM CLINICAL INDICATION:Male, 83 years old with history of I67.9 CEREBROVASCULAR DISEASE, UNSPECIFIED; PH H, Dizziness, Forgetfulness, Numbness Left leg, CVA COMPARISON: 02/11/2023 . TECHNIQUE: Multi planar, multi sequence imaging was performed through the brain including: T1, T2, In version recovery, Diffusion weighted imaging, and gradient echo imaging. No gadolinium was given. FINDINGS: Mild cerebral atrophy with proportional dilation of ventricular system. Scattered foci of high T2 s ignal intensity are seen within the periventricular white matter. Midline structures show no abnormal ity. Diffusion-weighted imaging shows no evidence of restricted diffusion. The susceptibility weighte d images do not reveal any evidence for micro-hemorrhage. The bone marrow signal is within normal limits. Paranasal sinuses and mastoid air cells: Mild scattered paranasal sinus disease. Visualized orbits: Bilateral aphakia High T2/high DWI reniform signal lesion in the scalp posteriorly possibly representing a lymph node IMPRESSION: 1. No evidence of intracranial mass or acute/subacute infarct. 2. Nonspecific white matter changes, likely secondary to small vessel ischemic disease.
== END | disposition home or self-care (01) ==
LOC: RADMRIMAIN 15:18
PROVIDERS: ATTEND Psychiatry & Neurology Neurology
DX: G93.89 Other specified disorders of brain (principal); I67.9 Cerebrovascular disease, unspecified; R20.0 Anesthesia of skin
CPT/HCPCS: 70551

== ENCOUNTER 2024-05-14 03:44 | Emergency (ER) | payer MEDICARE ==
[2024-05-14 03:50] VITALS: TEMP 98.1
[2024-05-14 04:50] LABS: Basophils % (A) 0 %; Eosinophils # (A) 0.3 k/uL (0-0.7); Eosinophils % (A) 3 %; HCT 31.1 % (39.0-53.0); HGB 10.1 gm/dL (13.0-17.5); Lymphocytes # (A) 1.1 k/uL (1.0-4.8); Lymphocytes % (A) 11 %; MCHC 32.6 g/dL (31.0-37.0); MCV 91.9 fL (80.0-100.0); Mean Platelet Volume 8.1; Monocytes # (A) 0.7 k/uL (0-1.0); Monocytes % (A) 7 %; Neutrophils # (A) 7.7 k/uL (1.3-7.7); Neutrophils % (A) 77 %; Platelet Count 219 k/uL (150-450); RBC 3.38 m/uL (4.30-5.90); RDW 15.8 % (11.5-15.5)
[2024-05-14 04:54] LABS: ALT 14 U/L (4-49); AST 18 U/L (17-59); African American GFR (CKD) 23 (>60 ml/min/1.73 sqM); Albumin 4.5 g/dL (3.5-5.0); Alkaline Phosphatase 89 U/L (38-126); Anion Gap 8 mmol/L; Blood Urea Nitrogen 41 mg/dL (9-20); Calcium 9.3 mg/dL (8.4-10.2); Carbon Dioxide 24 mmol/L (22-30); Chloride 106 mmol/L (98-107); Glucose 183 mg/dL (74-99); Non-African American GFR(CKD) 20 (>60 ml/min/1.73 sqM); Potassium 4.9 mmol/L (3.5-5.1); Sodium 138 mmol/L (137-145); Total Bilirubin 0.4 mg/dL (0.2-1.3); Total Protein 6.7 g/dL (6.3-8.2)
[2024-05-14 05:13] LABS: INR 0.9 (<1.2); Partial Thromboplastin Time 22.9 sec (22.0-30.0); Prothrombin Time 10.4 sec (10.0-12.5)
--- NOTE | 2024-05-14 05:15 | ED ---
General Adult HPI - General Chief complaint: Chest Pain Stated complaint: abd pain chest pain Time Seen by Provider: 05/14/24 05:01 Source: patient Mode of arrival: ambulatory Limitations: no limitations - History of Present Illness Initial comments: This patient is an 84-year-old man who arrives to have evaluation of pains that he has had over the course of the night. The patient is experiencing right flank pain that he states is severe, constant, sharp. He has had some associated nausea. The patient also was experiencing pains that he has had in association with previous chest pain. He states he had bilateral shoulder and neck pains. Patient did not experience any associated symptoms, no diaphoresis, dyspnea, palpitations or syncope. -: hour(s) Location: abdomen Radiation: flank Quality: sharp Consistency: constant Improves with: none Worsens with: none Associated Symptoms: nausea/vomiting Treatments Prior to Arrival: NSAID - Related Data Home Medications Medication Instructions Recorded Confirmed Aspirin EC [Ecotrin Low Dose] 81 mg PO DAILY 06/11/19 08/14/23 Cyanocobalamin (Vitamin B-12) 2,000 mcg PO DAILY 06/11/19 08/14/23 [Vitamin B-12] Isosorbide Mononitrate ER [Imdur] 60 mg PO DAILY 06/11/19 08/14/23 Multivitamins, Thera [Multivitamin 1 tab PO DAILY 06/11/19 08/14/23 (formulary)] Escitalopram [Lexapro] 20 mg PO DAILY 08/25/21 08/14/23 Losartan/Hydrochlorothiazide 1 tab PO DAILY 08/25/21 08/14/23 [Losartan-Hctz 100-12.5 mg Tab] Meloxicam 15 mg PO DAILY 08/25/21 08/14/23 Metoprolol Tartrate [Lopressor] 25 mg PO BID 08/25/21 08/14/23 Montelukast [Singulair] 10 mg PO HS 08/25/21 08/14/23 Ranolazine [Ranexa] 500 mg PO BID 08/25/21 08/14/23 Rosuvastatin Calcium [Crestor] 40 mg PO HS 08/25/21 08/14/23 amLODIPine [Norvasc] 5 mg PO DAILY 08/25/21 08/14/23 cycloSPORINE 0.05% OPHTH SOLN 1 drop BOTH EYES BID 08/25/21 08/14/23 [Restasis] Acetaminophen [Tylenol] 325 mg PO 08/14/23 Cholecalciferol [Vitamin D3 (10 08/14/23 Mcg = 400 Iu)] buPROPion XL [Wellbutrin XL] 150 mg PO DAILY 08/14/23 08/14/23 traMADol HCL 50 mg PO Q6H 08/14/23 08/14/23 Donepezil [Aricept] 20 mg PO HS 05/18/24 05/18/24 Ginkgo Biloba [place] Extract [Ginkgo] 60 mg PO 05/18/24 Omeprazole [PriLOSEC] 20 mg PO ONCE 05/18/24 05/18/24 Previous Rx's Medication Instructions Recorded Tamsulosin [Flomax] 0.4 mg PO DAILY #14 cap 05/14/24 Cephalexin [Keflex] 500 mg PO Q8HR #15 cap 05/18/24 Allergies Allergy/AdvReac Type Severity Reaction Status Date / Time morphine Allergy Rash/Hives Verified 05/18/24 11:32 ketamine AdvReac Unknown Verified 05/18/24 12:09 lorazepam [From Ativan] AdvReac Confusion, Verified 05/18/24 11:32 altered mental prednisone AdvReac cardiac Verified 05/18/24 11:32 issues Review of Systems ROS Statement: Those systems with pertinent positive or pertinent negative responses have been documented in the HPI. ROS Other: All systems not noted in ROS Statement are negative. Constitutional: Denies: fever, chills, weakness Respiratory: Denies: cough, dyspnea Cardiovascular: Reports: chest pain. Denies: palpitations, orthopnea Gastrointestinal: Reports: abdominal pain, nausea. Denies: vomiting, diarrhea, melena, hematochezia Genitourinary: Denies: dysuria, frequency, hematuria, testicular pain, testicular mass Musculoskeletal: Denies: back pain Skin: Denies: rash Neurological: Denies: headache, weakness, numbness Past Medical History Past Medical History: Chest Pain / Angina, Diabetes Mellitus, Hyperlipidemia, Hypertension, Renal Disease History of Any Multi-Drug Resistant Organisms: None Reported Past Surgical History: Coronary Bypass/CABG Additional Past Surgical History / Comment(s): quad bypass Past Anesthesia/Blood Transfusion Reactions: No Reported Reaction Past Psychological History: No Psychological Hx Reported, Depression Smoking Status: Former smoker Past Alcohol Use History: None Reported Past Drug Use History: None Reported - Past Family History Father History Unknown: Yes Mother Additional Family Medical History / Comment(s): heart problems General Exam Limitations: no limitations General appearance: alert, in no apparent distress Head exam: Present: atraumatic, normocephalic Eye exam: Present: normal appearance. Absent: scleral icterus, conjunctival injection ENT exam: Present: normal oropharynx Neck exam: Present: normal inspection Respiratory exam: Present: normal lung sounds bilaterally. Absent: respiratory distress, wheezes, rales, rhonchi, stridor, accessory muscle use Cardiovascular Exam: Present: regular rate, normal rhythm, normal heart sounds. Absent: systolic murmur, diastolic murmur, rubs, gallop GI/Abdominal exam: Present: soft. Absent: distended, tenderness, guarding, rebound, rigid, mass, pulsatile mass Extremities exam: Present: normal inspection, normal capillary refill. Absent: pedal edema, calf tenderness Back exam: Present: normal inspection, CVA tenderness (R). Absent: CVA tenderness (L) Neurological exam: Present: alert Skin exam: Present: warm, dry, intact, normal color. Absent: rash Course Vital Signs 05/14/24 05/14/24 05/14/24 03:49 04:20 06:10 Temperature 98.1 F Pulse Rate 51 L 76 58 L Respiratory 18 16 16 Rate Blood Pressure 162/64 147/61 164/74 O2 Sat by Pulse 99 98 99 Oximetry 05/14/24 08:10 Temperature Pulse Rate 56 L Respiratory 20 Rate Blood Pressure 160/74 O2 Sat by Pulse 96 Oximetry EKG Findings - EKG Results: EKG: interpreted by ERMD, normal axis, normal QRS, normal ST/T EKG shows: bradycardia (Rate 53 bpm), atrial fibrillation Medical Decision Making - Medical Decision Making The patient had CT scan of the abdomen that I interpreted as showing presence of kidney stone with hydronephrosis The patient had chest x-ray that I interpreted as negative for acute infiltrate, pneumothorax, congestive heart failure Was pt. sent in by a medical professional or institution (, PA, GRAILS WEB APPLICATION DEVELOPER, urgent care, hospital, or jail...) When possible be specific @ -[No] Did you speak to anyone other than the patient for history (EMS, parent, family, police, friend...)? What history was obtained from this source @ -[No] Did you review nursing and triage notes (agree or disagree)? Why? @ -[I reviewed and agree with nursing and triage notes] Were old charts reviewed (outside hosp., previous admission, EMS record, old EKG, old radiological studies, urgent care reports/EKG's, jail records)? Report findings @ -[No old charts were reviewed] Differential Diagnosis (chest pain, altered mental status, abdominal pain women, abdominal pain men, vaginal bleeding, weakness, fever, dyspnea, syncope, headache, dizziness, GI bleed, back pain, seizure, CVA, palpatations, mental health, musculoskeletal)? @ -[Differential Abdominal Pain Men: Appendicitis, cholecystitis, diverticulosis, ischemic bowel, pancreatitis, hepatitis, UTI, gastroenteritis, AAA, incarcerated hernia, bowel obstruction, constipation, inflammatory bowel, hepatitis, peptic ulcer disease, splenic infarction, perforated viscus, testicular torsion, this is not meant to be an all-inclusive list EKG interpreted by me (3pts min.). @ -[As above] X-rays interpreted by me (1pt min.). @ -[Interpreted as above CT interpreted by me (1pt min.). @ -[I interpreted as above U/S interpreted by me (1pt. min.). @ -[None done] What testing was considered but not performed or refused? (CT, X-rays, U/S, labs)? Why? @ -[None] What meds were considered but not given or refused? Why? @ -[None] Did you discuss the management of the patient with other professionals (professionals i.e. , PA, GRAILS [employer] APPLICATION DEVELOPER, lab, RT, psych nurse, social service manager, geothermal operations manager, teacher, occupational health and safety officer, disease case manager)? Give summary @ -[No] Was smoking cessation discussed for >3mins.? @ -[No] Was critical care preformed (if so, how long)? @ -[No] Were there social determinants of health that impacted care today? How? (Homelessness, low income, unemployed, alcoholism, drug addiction, transp ortation, low edu. Level, literacy, decrease access to med. care, fci, rehab)? @ -[No] Was there de-escalation of care discussed even if they declined (Discuss DNR or withdrawal of care, Hospice)? DNR status @ -[No] What co-morbidities impacted this encounter? (DM, HTN, Smoking, COPD, CAD, Cancer, CVA, ARF, Chemo, Hep., AIDS, mental health diagnosis, sleep apnea, morbid obesity)? @ -[None] Was patient admitted / discharged? Hospital course, mention meds given and route, prescriptions, significant lab abnormalities, going to OR and other pertinent info. @ -[Patient is an 84-year-old man with kidney stone. His symptoms have improved and at this point he would like to go home. Discussed appropriate further care and follow-up as well as return parameters. I did discuss that his creatinine has increased and I would recommend staying but he is feeling like he would like to go home. Stressed the importance of close follow-up to ensure that the creatinine numbers do not increase and that they do go back to his baseline. Undiagnosed new problem with uncertain prognosis? @ -[No] Drug Therapy requiring intensive monitoring for toxicity (Heparin, Nitro, Insulin, Cardizem)? @ -[No] Were any procedures done? @ -[No] Diagnosis/symptom? @ -[Acute kidney stone Elevated creatinine Acute, or Chronic, or Acute on Chronic? @ -Acute Uncomplicated (without systemic symptoms) or Complicated (systemic symptoms)? @ -[Uncomplicated Side effects of treatment? @ -[No] Exacerbation, Progression, or Severe Exacerbation? @ -[No] Poses a threat to life or bodily function? How? (Chest pain, [place], [place], pneumonia, PE, COPD, DKA, ARF, appy, cholecystitis, CVA, Diverticulitis, Homicidal, Suici yael, threat to staff... and all critical care pts) @ -[Yes there is risk associated with the elevated creatinine. Patient understands need to have close follow-up and to return if he is not having i mprovement, worse in any way All treatments are based on ideal body weight as in ED triage - Lab Data Result diagrams: 05/14/24 03:55 05/14/24 03:55 Lab Results 05/14/24 05/14/24 05/14/24 Range/Units 03:55 03:55 03:55 WBC 10.0 (3.8-10.6) k/uL RBC 3.38 L (4.30-5.90) m/uL Hgb 10.1 L (13.0-17.5) gm/dL Hct 31.1 L (39.0-53.0) % MCV 91.9 (80.0-100.0) fL MCH 30.0 (25.0-35.0) pg MCHC 32.6 (31.0-37.0) g/dL RDW 15.8 H (11.5-15.5) % Plt Count 219 (150-450) k/uL MPV 8.1 Neutrophils % 77 % Lymphocytes % 11 % Monocytes % 7 % Eosinophils % 3 % Basophils % 0 % Neutrophils # 7.7 (1.3-7.7) k/uL Lymphocytes # 1.1 (1.0-4.8) k/uL Monocytes # 0.7 (0-1.0) k/uL Eosinophils # 0.3 (0-0.7) k/uL Basophils # 0.0 (0-0.2) k/uL PT 10.4 (10.0-12.5) sec INR 0.9 (<1.2) APTT 22.9 (22.0-30.0) sec Sodium 138 (137-145) mmol/L Potassium 4.9 (3.5-5.1) mmol/L Chloride 106 (98-107) mmol/L Carbon Dioxide 24 (22-30) mmol/L Anion Gap 8 mmol/L BUN 41 H (9-20) mg/dL Creatinine 2.86 H (0.66-1.25) mg/dL Est GFR (CKD-EPI)AfAm 23 (>60 ml/min/1.73 sqM) Est GFR (CKD-EPI)NonAf 20 (>60 ml/min/1.73 sqM) Glucose 183 H (74-99) mg/dL Calcium 9.3 (8.4-10.2) mg/dL Magnesium 2.0 (1.6-2.3) mg/dL Total Bilirubin 0.4 (0.2-1.3) mg/dL AST 18 (17-59) U/L ALT 14 (4-49) U/L Alkaline Phosphatase 89 (38-126) U/L Troponin I (0.000-0.034) ng/mL Total Protein 6.7 (6.3-8.2) g/dL Albumin 4.5 (3.5-5.0) g/dL 05/14/24 Range/Units 03:55 WBC (3.8-10.6) k/uL RBC (4.30-5.90) m/uL Hgb (13.0-17.5) gm/dL Hct (39.0-53.0) % MCV (80.0-100.0) fL MCH (25.0-35.0) pg MCHC (31.0-37.0) g/dL RDW (11.5-15.5) % Plt Count (150-450) k/uL MPV Neutrophils % % Lymphocytes % % Monocytes % % Eosinophils % % Basophils % % Neutrophils # (1.3-7.7) k/uL Lymphocytes # (1.0-4.8) k/uL Monocytes # (0-1.0) k/uL Eosinophils # (0-0.7) k/uL Basophils # (0-0.2) k/uL PT (10.0-12.5) sec INR (<1.2) APTT (22.0-30.0) sec Sodium (137-145) mmol/L Potassium (3.5-5.1) mmol/L Chloride (98-107) mmol/L Carbon Dioxide (22-30) mmol/L Anion Gap mmol/L BUN (9-20) mg/dL Creatinine (0.66-1.25) mg/dL Est GFR (CKD-EPI)AfAm (>60 ml/min/1.73 sqM) Est GFR (CKD-EPI)NonAf (>60 ml/min/1.73 sqM) Glucose (74-99) mg/dL Calcium (8.4-10.2) mg/dL Magnesium (1.6-2.3) mg/dL Total Bilirubin (0.2-1.3) mg/dL AST (17-59) U/L ALT (4-49) U/L Alkaline Phosphatase (38-126) U/L Troponin I <0.012 (0.000-0.034) ng/mL Total Protein (6.3-8.2) g/dL Albumin (3.5-5.0) g/dL Disposition Clinical Impression: Kidney stone on right side Disposition: HOME SELF-CARE Condition: Good Instructions (If sedation given, give patient instructions): Kidney Stones (ED) Additional Instructions: As we discussed, your creatinine is higher than his usual for you. You must have this rechecked in 1 to 2 days to ensure that it has gone back to normal. If you are worse in any way or not having improvement return to the emergency department. Prescriptions: Tamsulosin [Flomax] 0.4 mg PO DAILY #14 cap Is patient prescribed a controlled substance at d/c from ED?: No Referrals: Junaid Castañeda MD [Primary Care Provider] - 1-2 days Uday Cuellar MD [STAFF PHYSICIAN] - 1-2 days
[2024-05-14] MEDS: SODIUM CHLORIDE 0.9% 1,000 ML IV STA (05:49)
[2024-05-14] MEDS: KETOROLAC 15 MG/ML 1 ML VIAL IVP STA (06:08)
--- NOTE | 2024-05-14 06:50 | XR ---
EXAM: XR Chest, 2 Views CLINICAL HISTORY: ITS.REASON XR Reason: Chest Pain TECHNIQUE: Frontal and lateral views of the chest. COMPARISON: No relevant prior studies available. FINDINGS: Lungs: Unremarkable. No consolidation. Pleural space: Unremarkable. No pneumothorax. Heart: Moderate enlargement of the cardiac silhouette. Mediastinum: Unremarkable. Normal mediastinal contour. Bones/joints: Degenerative changes are seen within the spine and shoulders. Sternotomy wires are in place. No acute fracture. Vasculature: Calcifications overlie the aorta. IMPRESSION: No acute findings in the chest.
[2024-05-14] MEDS: TAMSULOSIN 0.4 MG CAP.ER.24H PO STA (06:58)
--- NOTE | 2024-05-14 07:19 | CT ---
EXAM: CT Abdomen and Pelvis Without Intravenous Contrast CLINICAL HISTORY: ITS.REASON CT Reason: r flank pain TECHNIQUE: Axial computed tomography images of the abdomen and pelvis without intravenous contrast. CTDI is 15.6 mGy and DLP is 1051.4 mGy-cm. This CT exam was performed using one or more of the following dose reduction techniques: automated exposure control, adjustment of the mA and/or kV according to patient size, and/or use of iterative reconstruction technique. COMPARISON: CT dated 02/11/2023 FINDINGS: Lung bases: Unremarkable. No mass. No consolidation. ABDOMEN: Liver: Unremarkable. Gallbladder and bile ducts: Unremarkable. No calcified stones. No ductal dilation. Pancreas: Unremarkable. No ductal dilation. Spleen: Unremarkable. No splenomegaly. Adrenals: Unremarkable. No mass. Kidneys and ureters: 5.4 mm stone seen within the distal right ureter with moderate right-sided hydronephrosis and hydroureter. Bilateral nephrolithiasis. Vibratory stranding is seen surrounding the right kidney. 1.5 cm stone seen within the left renal pelvis without evidence of obstruction. No distal left urolithiasis. Stomach and bowel: Moderate to severe colonic stool burden. No obstruction. No mucosal thickening. PELVIS: Appendix: No findings to suggest acute appendicitis. Bladder: Unremarkable. No stones. Reproductive: Unremarkable as visualized. ABDOMEN and PELVIS: Intraperitoneal space: Unremarkable. No free air. No significant fluid collection. Bones/joints: Degenerative changes are seen within the spine and hips. No acute fracture. No dislocation. Soft tissues: Unremarkable. Vasculature: Calcifications are seen within a nondilated aorta. Lymph nodes: Unremarkable. No enlarged lymph nodes. IMPRESSION: 1. Moderately obstructing distal right ureteral stone. Inflammatory stranding is seen surrounding the right kidney, underlying superimposed infection is not excluded. 2. Nonobstructing stone seen within the left renal pelvis.
[2024-05-14 08:12] VITALS: BP 160/74; PULSE 56; RESP 20
== END 2024-05-14 08:14 | disposition home or self-care (01) ==
LOC: EC 03:44
DX: N20.2 Calculus of kidney with calculus of ureter (principal); Z87.891 Personal history of nicotine dependence; Z88.5 Allergy status to narcotic agent; Z88.8 Allergy status to other drugs, medicaments and biological substances
CPT/HCPCS: 36415; 93005; 80053; 83735; 84484; 85025; 85610; 85730; 71046; 74176; 96374; 96361; 99285; J1885

== ENCOUNTER 2024-05-18 11:07 | Day surgery (SDC) | payer MEDICARE ==
--- NOTE | 2024-05-18 07:52 | P.HPIHPCON ---
History of Present Illness H&P Date: 05/18/24 Chief Complaint: Right ureteral stone, left renal stone This is an 84-year-old male with history of a 6 mm stone along the distal right ureter causing hydronephrosis and a 1.5 cm left-sided renal pelvis stone. Patient creatinine is elevated at 2.8 from a baseline of 1.9 secondary to his obstructive stone. He is symptomatic. Option of bilateral ureteroscopy with holmium laser was discussed, aware of the risk which includes but not limited to bleeding, infection, injury to the ureter Consent for Procedure: I have explained the operation/procedure to the patient, including the risks, benefits, side effects, alternative therapies (including not receiving the proposed treatment or service), the likelihood of the patient achieving his/her goals, and potential recuperation problems for the procedure/sedation/analgesia, as well as any blood products, if indicated. I also explained to the patient the risks, benefits and side effects of the alternatives, as well as the risks related to not receiving the proposed procedure, care, treatment, or services. Past Medical History Past Medical History: Chest Pain / Angina, Diabetes Mellitus, Hyperlipidemia, Hypertension, Renal Disease History of Any Multi-Drug Resistant Organisms: None Reported Past Surgical History: Coronary Bypass/CABG Additional Past Surgical History / Comment(s): quad bypass Past Anesthesia/Blood Transfusion Reactions: No Reported Reaction Past Psychological History: No Psychological Hx Reported, Depression Smoking Status: Former smoker Past Alcohol Use History: None Reported Past Drug Use History: None Reported - Past Family History Father History Unknown: Yes Mother Additional Family Medical History / Comment(s): heart problems Medications and Allergies Home Medications Medication Instructions Recorded Confirmed Type Aspirin EC [Ecotrin Low Dose] 81 mg PO DAILY 06/11/19 08/14/23 History Cyanocobalamin (Vitamin B-12) 2,000 mcg PO DAILY 06/11/19 08/14/23 History [Vitamin B-12] Isosorbide Mononitrate ER [Imdur] 60 mg PO DAILY 06/11/19 08/14/23 History Multivitamins, Thera [Multivitamin 1 tab PO DAILY 06/11/19 08/14/23 History (formulary)] Escitalopram [Lexapro] 20 mg PO DAILY 08/25/21 08/14/23 History Losartan/Hydrochlorothiazide 1 tab PO DAILY 08/25/21 08/14/23 History [Losartan-Hctz 100-12.5 mg Tab] Meloxicam 15 mg PO DAILY 08/25/21 08/14/23 History Metoprolol Tartrate [Lopressor] 25 mg PO BID 08/25/21 08/14/23 History Montelukast [Singulair] 10 mg PO HS 08/25/21 08/14/23 History Ranolazine [Ranexa] 500 mg PO BID 08/25/21 08/14/23 History Rosuvastatin Calcium [Crestor] 40 mg PO HS 08/25/21 08/14/23 History amLODIPine [Norvasc] 5 mg PO DAILY 08/25/21 08/14/23 History cycloSPORINE 0.05% OPHTH SOLN 1 drop BOTH EYES BID 08/25/21 08/14/23 History [Restasis] Acetaminophen [Tylenol] 325 mg PO 08/14/23 History Cholecalciferol [Vitamin D3 (08/14/23 History Mcg = 400 Iu)] buPROPion XL [Wellbutrin XL] 150 mg PO DAILY 08/14/23 08/14/23 History traMADol HCL 50 mg PO Q6H 08/14/23 08/14/23 History Tamsulosin [Flomax] 0.4 mg PO DAILY #14 cap 05/14/24 Rx Allergies Allergy/AdvReac Type Severity Reaction Status Date / Time morphine Allergy Rash/Hives Verified 05/14/24 03:50 lorazepam [From Ativan] AdvReac Confusion, Verified 05/14/24 03:50 altered mental prednisone AdvReac cardiac Verified 05/14/24 03:50 issues Surgical - Exam - General no distress, moderate pain - Eyes normal ocular movement, no pale - ENT normal nares, normal mucosa - Respiratory normal expansion, normal respiratory effort - Abdomen Abdomen: soft, non tender - Psychiatric oriented to time, oriented to person, oriented to place Assessment and Plan Assessment: OR for bilateral ureteroscopy, holmium laser lithotripsy, stone basketing and stent insertion
--- NOTE | 2024-05-18 11:54 | XR ---
EXAMINATION TYPE: XR KUB DATE OF EXAM: 05/18/2024 11:19 AM COMPARISON: CT 05/14/2024 CLINICAL INDICATION: Male, 84 years old with history of Ureteral- Renal Stone N20.1 N20.0, , FINDINGS: Known bilateral ureteral stones and mid right ureteral stone not well appreciated radiographically. B owel content largely obscures the renal shadows. Moderate overall spinal burning. Mild vascular calci fications in the pelvis. Nonobstructive bowel gas pattern. IMPRESSION: Known bilateral renal stones not well demonstrated radiographically. Moderate stool burden. [facility], , 05/18/2024 11:52 AM
[2024-05-18 11:55] LABS: Glucose,Whole Blood 149 mg/dL (70-110)
[2024-05-18] MEDS: IV FLUID CONTINUATION 1,000 ML IV ONE (11:55)
[2024-05-18] MEDS: LACTATED RINGERS 1,000 ML BAG IV STA (11:56)
[2024-05-18] MEDS: ONDANSETRON 4 MG/2 ML VIAL IVP PRN (11:58)
[2024-05-18] MEDS ORDERED: LACTATED RINGERS 1,000 ML IV SCH (12:01)
[2024-05-18] MEDS ORDERED: DEXAMETHASONE SOD PHOSPHATE 4 MG/ML 1 ML VIAL IV ONE (12:01)
[2024-05-18] MEDS ORDERED: ONDANSETRON 4 MG/2 ML VIAL IVP ONE (12:01)
[2024-05-18] MEDS ORDERED: WATER FOR INJECTION, STERILE 10 ML VIAL IV ONE (13:08)
[2024-05-18] MEDS ORDERED: GLYCOPYRROLATE 0.2 MG/ML 2 ML VIAL ONE (13:08)
[2024-05-18] MEDS ORDERED: ePHEDrine 50 MG/ML 1 ML VIAL ONE (13:08)
[2024-05-18] MEDS ORDERED: fentaNYL (PF) 50 MCG/ML 2 ML AMP ONE (13:08)
[2024-05-18] MEDS ORDERED: LIDOCAINE 1% INJ 10MG/ML (20 ML MDV) ONE (13:08)
[2024-05-18] MEDS ORDERED: PHENYLEPHRINE-0.9% NACL SYG 1,000 MCG/10 ML SYRINGE ONE (13:08)
[2024-05-18] MEDS ORDERED: PROPOFOL 10 MG/ML 20 ML VIAL IV ONE (13:08)
--- NOTE | 2024-05-18 14:42 | P.OP ---
Date of Procedure: 05/18/24 Preoperative Diagnosis: Lateral renal stones, right ureteral stone Postoperative Diagnosis: Same Procedure(s) Performed: Cystoscopy, bilateral ureteroscopy, holmium laser lithotripsy, stone basketing and stent insertion Implants: 6 [place] by 26 cm stent in the left ureter left on a string Anesthesia: MARIA EUGENIA Surgeon: Uday Cuellar Estimated Blood Loss (ml): 5 Pathology: other (Bilateral renal stones) Condition: stable Disposition: PACU Indications for Procedure: This is an 84-year-old male with history of a 6 mm stone along the distal right ureter causing hydronephrosis and a 1.5 cm left-sided renal pelvis stone. Patient creatinine is elevated at 2.8 from a baseline of 1.9 secondary to his obstructive stone. He is symptomatic. Option of bilateral ureteroscopy with holmium laser was discussed, aware of the risk which includes but not limited to bleeding, infection, injury to the ureter Operative Findings: Right distal ureteral stone multiple stones in the right lower pole, large stone in the left renal pelvis Description of Procedure: Patient brought to the operating room, general anesthesia was induced. He was prepped and draped in sterile fashion and placed in a dorsolithotomy position. Cystoscopy fitted with a 21 [place] sheath was inserted per urethra, cystoscopy was performed which showed no abnormality within the bladder. Patient had a moderately enlarged prostate but was not occlusive. Attention was carried to the right ureteral orifice, the semirigid ureteroscope was inserted per urethra advanced up the right ureteral orifice, at this point a stone was encountered in the distal ureter. Using the holmium laser the stone was fragmented, stone fragments were removed using a stone basket. At this time the ureteroscope was advanced all the way up to the proximal ureter which showed no additional stones, pullback ureteroscopy was performed showed no sizable fragments or injury to the ureter, as ureteroscope was withdrawn a sensor wire was advanced through. Next an 1113 [place] access sheath was passed over the wire into the proximal ureter. Next a flexible ureteroscope was inserted through the access sheath, renoscopy was performed showed multiple large stone in the lower pole. Using the holmium laser the stones were dusted, sizable stone fragments were removed using a stone basket. Repeat renoscopy showed no sizable fragments or injury to the kidney. Pullback ureteroscopy was performed showed no injury to the ureter or any ureteral stones, there was no ureteral edema thus a stent was not placed. Attention was then carried to the left ureteral orifice, a cystoscope was reinserted per urethra the left ureteral orifice was identified and intubated with a sensor wire. Next under fluoroscopy an 1113 [place] access sheath was passed over the wire into the proximal ureter. Next a flexible ureteroscope was inserted through the access sheath, renoscopy was performed showed large stone in the renal pelvis . Using the holmium laser the stones were dusted, sizable stone fragments were removed using a stone basket. Repeat renoscopy showed no sizable fragments or injury to the kidney. Pullback ureteroscopy was performed showed no injury to the ureter or any ureteral stones. As the ureteroscope was withdrawn a sensor wire was advanced through. Next a ureteral stent was passed over the wire, the proximal curl was visualized on fluoroscopy and the distal curl was visualized using the cystoscope. The stent was left on a string and taped to the patient penis. Patient tolerated procedure well was taken to recovery in stable condition
[2024-05-18 14:50] VITALS: RESP 14; TEMP 97.1
[2024-05-18] MEDS: ACETAMINOPHEN IV (For NPO) 1,000 MG in EMPTY BAG 1 BAG IVPB STA (15:09)
--- NOTE | 2024-05-18 15:19 | FL ---
EXAMINATION TYPE: FL guidance operating room DATE OF EXAM: 05/18/2024 FLUOROSCOPY Fl time 47 sec Dap .[id number] Cuellar cystcarlos with lithotripsy One image is submitted. [facility], , 05/18/2024 3:17 PM
[2024-05-18 15:44] VITALS: BP 114/51; PULSE 53
[2024-05-19] MEDS ORDERED: fentaNYL (PF) 50 MCG/ML 2 ML AMP IV PRN (07:00)
== END 2024-05-18 16:04 | disposition home or self-care (01) ==
LOC: OR 11:07
PROVIDERS: ATTEND Urology
DX: N20.2 Calculus of kidney with calculus of ureter (principal); E11.9 Type 2 diabetes mellitus without complications; E78.5 Hyperlipidemia, unspecified; I10 Essential (primary) hypertension; Z87.891 Personal history of nicotine dependence; Z95.1 Presence of aortocoronary bypass graft; Z88.8 Allergy status to other drugs, medicaments and biological substances; Z88.5 Allergy status to narcotic agent; Z79.82 Long term (current) use of aspirin; Z79.1 Long term (current) use of non-steroidal anti-inflammatories (NSAID); Z79.899 Other long term (current) drug therapy
CPT/HCPCS: 82365; 74018; 52356; C2625; C1769; J0690; J2405; J2003; J3010; J0131; J2704; J2371; J1596